=== PATIENT | male | born 1965 | race Caucasian/White ===

== ENCOUNTER 2021-05-19 16:08 | Outpatient (REF) | payer BC, SELFPAY ==
--- NOTE | ~2021-05-19 | XR_ITS ---
EXAMINATION: XR FOOT, RIGHT CLINICAL INFORMATION: Cellulitis, right great toe injury 1 week. COMPARISON: None TECHNIQUE: AP, lateral, and oblique views of the right foot. FINDINGS: There is an oblique fracture proximal segment distal phalanx great toe with intra-articular extension. There is mild soft tissue swelling. No additional fractures seen. Rest of the right foot is unremarkable. The ankle mortise and subtalar joints are normal. There is a tiny calcaneal heel enthesophyte. XR/XR foot RT min 3V IMPRESSION: Oblique fracture proximal segment distal phalanx first digit with intra-articular extension. The soft tissues are normal.
== END 2021-05-19 16:09 | disposition home or self-care (01) ==
LOC: HO.HMGCX 16:08
PROVIDERS: PCP Internal Medicine; Visit Provider Nurse Practitioner Family
DX: L03.90 Cellulitis, unspecified (principal); S99.921A Unspecified injury of right foot, initial encounter
CPT/HCPCS: 73630

== ENCOUNTER 2021-09-11 08:14 | Outpatient (REF) | payer BC, SELFPAY ==
[2021-09-11 11:23] LABS: MANUAL DIFF FLAG NO
[2021-09-11 11:35] LABS: Basophils Absolute Auto 0.1 X10*3/uL (0.0-0.2); Eosinophils Absolute Auto 0.3 X10*3/uL (0.0-0.4); Eosinophils Percent Auto 4.8 % (0-4); Hematocrit 44.4 % (42.0-52.0); Hemoglobin 14.9 g/dl (14.0-18.0); Imm Gran Abs Auto 0.02 X10*3/uL (0.00-0.03); Imm Gran Pct Auto 0.4 % (0.0-0.4); Lymphocytes Absolute Auto 1.5 X10*3/uL (1.2-4.9); Lymphocytes Percent Auto 27.7 % (20-40); Mean Corpuscular HGB Conc 33.6 g/dl (31.0-36.0); Mean Corpuscular Volume 92.5 fL (80.0-98.0); Mean Platelet Volume 10.6 fL (9.4-12.4); Monocytes Absolute Auto 0.6 X10*3/uL (0.1-1.2); Monocytes Percent Auto 11.5 % (2-11); Neutrophils Absolute Auto 2.9 x10*3/uL (2.0-8.3); Neutrophils Percent Auto 54.6 % (45-73); Platelet Count 235 X10*3/uL (160-400); Red Cell Distribution Width 12.6 % (11.0-16.0); White Blood Count 5.2 X10*3/uL (4.8-10.8)
[2021-09-11 12:02] LABS: Alanine Aminotransferase 42 U/L (0-40); Albumin Level 4.7 g/dL (3.5-5.0); Alkaline Phosphatase 77 U/L (39-117); Anion Gap 17 (12-20); Aspartate Amino Transferase 41 U/L (5-37); Bilirubin Total 0.9 mg/dL (0.0-1.0); Blood Urea Nitrogen 12 mg/dL (9-16); Carbon Dioxide 21 mmol/L (22-29); Chloride 106 mmol/L (96-108); Cholesterol 181 mg/dL; Estimated Glomerular Filt Rate > 60; Glucose Fasting 90 mg/dL (60-99); HDL Cholesterol 75 mg/dL; LDL Cholesterol Calculated 69 mg/dl; Potassium 4.1 mmol/L (3.3-5.1); Sodium 140 mmol/L (135-145); Total Protein 7.3 g/dL (6.5-8.0); Triglycerides 185 mg/dL
[2021-09-11 12:05] LABS: Thyroid Stimulating Hormone 2.73 uIU/mL (0.32-4.0)
[2021-09-11 14:12] LABS: Appearance Urine CLEAR; Color Urine YELLOW; Glucose Urine UA NEG (NEG); Leukocyte Esterase Urine NEG (NEG); Nitrite Urine NEG (NEG); PH 6.5 (5.0-8.0); Urine Blood NEG (NEG); Urine Ketones 5 MG/DL (NEG); Urine Protein NEG (NEG-TRACE)
[2021-09-11 14:23] LABS: RBC Urine 0 /HPF (0); WBC Urine 0 /HPF (0-4)
== END 2021-09-11 08:15 | disposition home or self-care (01) ==
LOC: HO.HMGCLDS 08:14
PROVIDERS: PCP Internal Medicine; Visit Provider Internal Medicine
DX: I10 Essential (primary) hypertension (principal); E78.00 Pure hypercholesterolemia, unspecified; Z12.5 Encounter for screening for malignant neoplasm of prostate
CPT/HCPCS: 36415; 80053; 80061; 81001; 84153; 84443; 85025

== ENCOUNTER 2021-10-12 15:39 | Outpatient (REF) | payer BC, SELFPAY ==
--- NOTE | ~2021-10-12 | XR_ITS ---
EXAMINATION: XR ANKLE, RIGHT CLINICAL INFORMATION: Acute idiopathic out right ankle COMPARISON: Right foot 05/19/2021 TECHNIQUE: AP, lateral, and mortise views of the right ankle. FINDINGS: Mineralization is normal. There is no fracture or malalignment. The joint space is preserved. There are no bony erosive changes or soft tissue calcifications. There is no convincing evidence of soft tissue swelling or ankle joint effusion. There is mild spurring of the calcaneus at the plantar fascial and Achilles tendon insertions. XR/XR ankle RT min 3V IMPRESSION: No acute abnormality is seen in the ankle.
== END 2021-10-12 15:40 | disposition home or self-care (01) ==
LOC: HO.HMGCX 15:39
PROVIDERS: PCP Internal Medicine; Visit Provider Internal Medicine
DX: M10.071 Idiopathic gout, right ankle and foot (principal)
CPT/HCPCS: 73610

== ENCOUNTER 2021-10-13 14:15 | Outpatient (REF) | payer BC, SELFPAY ==
[2021-10-13 16:28] LABS: MANUAL DIFF FLAG NO
[2021-10-13 16:33] LABS: Basophils Percent Auto 0.5 % (0-2); Eosinophils Absolute Auto 0.1 X10*3/uL (0.0-0.4); Eosinophils Percent Auto 1.4 % (0-4); Hematocrit 42.2 % (42.0-52.0); Hemoglobin 14.1 g/dl (14.0-18.0); Imm Gran Abs Auto 0.01 X10*3/uL (0.00-0.03); Imm Gran Pct Auto 0.2 % (0.0-0.4); Lymphocytes Absolute Auto 1.5 X10*3/uL (1.2-4.9); Lymphocytes Percent Auto 25.5 % (20-40); Mean Corpuscular HGB Conc 33.4 g/dl (31.0-36.0); Mean Corpuscular Hemoglobin 31.3 pg (27.0-33.0); Mean Corpuscular Volume 93.8 fL (80.0-98.0); Mean Platelet Volume 10.4 fL (9.4-12.4); Monocytes Absolute Auto 0.8 X10*3/uL (0.1-1.2); Monocytes Percent Auto 14.4 % (2-11); Neutrophils Absolute Auto 3.4 x10*3/uL (2.0-8.3); Platelet Count 228 X10*3/uL (160-400); Red Cell Distribution Width 12.4 % (11.0-16.0); White Blood Count 5.9 X10*3/uL (4.8-10.8)
[2021-10-13 16:57] LABS: Alanine Aminotransferase 45 U/L (0-40); Albumin Level 4.9 g/dL (3.5-5.0); Alkaline Phosphatase 75 U/L (39-117); Anion Gap 17 (12-20); Aspartate Amino Transferase 34 U/L (5-37); Bilirubin Total 0.8 mg/dL (0.0-1.0); Blood Urea Nitrogen 9 mg/dL (9-16); Calcium 9.8 mg/dL (8.4-10.2); Carbon Dioxide 21 mmol/L (22-29); Chloride 105 mmol/L (96-108); Estimated Glomerular Filt Rate > 60; Glucose Random 94 mg/dL (60-115); Potassium 3.9 mmol/L (3.3-5.1); Sodium 139 mmol/L (135-145); Total Protein 7.2 g/dL (6.5-8.0); Uric Acid 5.3 mg/dL (3.4-7.0)
[2021-10-13 17:21] LABS: Erythrocyte Sedimentation Rate 2 MM/HR (0-15)
== END 2021-10-13 14:16 | disposition home or self-care (01) ==
LOC: HO.HMGCLDS 14:15
PROVIDERS: PCP Internal Medicine; Visit Provider Internal Medicine
DX: M10.071 Idiopathic gout, right ankle and foot (principal)
CPT/HCPCS: 36415; 80053; 84550; 85025; 85652; 86140

== ENCOUNTER 2021-10-14 08:46 | Outpatient (REF) | payer BC, SELFPAY ==
[2021-10-14 11:36] LABS: Appearance Urine CLEAR; Color Urine YELLOW; Glucose Urine UA NEG (NEG); Leukocyte Esterase Urine NEG (NEG); Nitrite Urine NEG (NEG); PH 7.5 (5.0-8.0); Urine Blood NEG (NEG); Urine Ketones NEG (NEG); Urine Protein NEG (NEG-TRACE)
[2021-10-14 12:25] LABS: Squamous Epithelial Cell Urine TRACE /LPF
[2021-10-14 12:26] LABS: RBC Urine 0-2 /HPF (0); WBC Urine 0-2 /HPF (0-4)
== END 2021-10-14 08:47 | disposition home or self-care (01) ==
LOC: HO.HMGCLNP 08:46
PROVIDERS: Visit Provider Internal Medicine
DX: M10.071 Idiopathic gout, right ankle and foot (principal)
CPT/HCPCS: 81001

== ENCOUNTER 2022-02-02 10:17 | Outpatient (REF) | payer BC, SELFPAY ==
[2022-02-02 11:41] LABS: Hemoglobin 14.1 g/dl (14.0-18.0); Neutrophils Absolute Auto 3.7 x10*3/uL (2.0-8.3); PLT CLUMP 1; SCAN SMEAR FLAG 1
[2022-02-02 11:43] LABS: Basophils Absolute Auto 0.1 X10*3/uL (0.0-0.2); Basophils Percent Auto 0.8 % (0-2); Eosinophils Absolute Auto 0.2 X10*3/uL (0.0-0.4); Eosinophils Percent Auto 2.8 % (0-4); Hematocrit 42.7 % (42.0-52.0); Imm Gran Abs Auto 0.03 X10*3/uL (0.00-0.03); Imm Gran Pct Auto 0.5 % (0.0-0.4); Lymphocytes Absolute Auto 1.4 X10*3/uL (1.2-4.9); Lymphocytes Percent Auto 22.4 % (20-40); MANUAL DIFF FLAG SCAN; Mean Corpuscular Hemoglobin 31.4 pg (27.0-33.0); Mean Corpuscular Volume 95.1 fL (80.0-98.0); Mean Platelet Volume 10.6 fL (9.4-12.4); Monocytes Percent Auto 15.2 % (2-11); Neutrophils Percent Auto 58.3 % (45-73); Red Blood Count 4.49 X10*6/uL (4.60-5.80); Red Cell Distribution Width 12.4 % (11.0-16.0)
[2022-02-02 12:01] LABS: Platelet Count 187 X10*3/uL (160-400); White Blood Count 6.4 X10*3/uL (4.8-10.8)
[2022-02-02 12:02] LABS: SLIDE REVIEW VERIFIED
[2022-02-02 16:57] LABS: Alanine Aminotransferase 57 U/L (0-40); Albumin Level 4.6 g/dL (3.5-5.0); Alkaline Phosphatase 88 U/L (39-117); Anion Gap 20 (12-20); Aspartate Amino Transferase 56 U/L (5-37); Bilirubin Total 0.9 mg/dL (0.0-1.0); Blood Urea Nitrogen 16 mg/dL (9-16); Calcium 9.8 mg/dL (8.4-10.2); Carbon Dioxide 21 mmol/L (22-29); Chloride 107 mmol/L (96-108); Estimated Glomerular Filt Rate > 60; Glucose Random 79 mg/dL (60-115); Potassium 4.7 mmol/L (3.3-5.1); Sodium 143 mmol/L (135-145); Total Protein 7.2 g/dL (6.5-8.0)
== END 2022-02-02 10:18 | disposition home or self-care (01) ==
LOC: HO.HMGCLDS 10:17
PROVIDERS: Visit Provider Internal Medicine
DX: R10.13 Epigastric pain (principal)
CPT/HCPCS: 36415; 80053; 85025

== ENCOUNTER 2022-05-12 06:35 | Day surgery (SDC) | payer BC, SELFPAY ==
[2022-03-17 11:27] VITALS: BMI 34.2
--- NOTE | 2022-03-22 09:40 | HO.ANESPROP2 ---
HPI - Anesthesia Eval Consult details Narrative: 56yo M for Upper Endoscopy PMFSH Active Problems Active Problems: All Active Problems (Updated 03/17/22 @ 11:25 by Bia Simpson RN) Cellulitis (Acute) Toe injury (Acute) Past Medical History Medical History (Updated 03/17/22 @ 11:25 by Bia Simpson, RN) Cervical spine fracture Elevated cholesterol GERD (gastroesophageal reflux disease) HTN (hypertension) Surgical History Surgical History (Updated 03/17/22 @ 11:25 by Bia Simpson RN) H/O colonoscopy History of meniscectomy of right knee History of surgery on right wrist Hx of cervical spine surgery Hx of repair of left rotator cuff Hx of tonsillectomy Meds Allergies Allergy/AdvReac Type Severity Reaction Status Date / Time ENVIRONMENTAL Allergy Intermediate NASAL Uncoded 03/17/22 11:26 STUFFINESS Home Medications Medication Instructions Recorded Confirmed Last Taken Type aspirin 81 mg tablet,delayed 81 mg PO DAILY 05/19/21 03/17/22 Unknown History release atorvastatin 40 mg tablet 40 mg PO DAILY 05/19/21 03/17/22 Unknown History losartan 50 mg tablet 1 tab PO DAILY 03/17/22 03/17/22 Unknown History multivitamin 1 tab PO DAILY 03/17/22 03/17/22 Unknown History pantoprazole 40 mg tablet,delayed 1 tab PO BID 03/17/22 03/17/22 Unknown History release tadalafil 20 mg tablet (Cialis) 1 tab PO DAILY PRN 03/17/22 03/17/22 Unknown History Exam Exam Date and Time: March 22, 2022 0940 Height,Weight and Vital Signs: Height 5 ft 11 in Weight 111.584 kg Pertinent Lab Results Pertinent Lab Results: Laboratory Tests 02/02/22 02/02/22 10:21 14:37 WBC 6.4 Hgb 14.1 Hct 42.7 Plt Count 187 Sodium 143 Potassium 4.7 D Chloride 107 Carbon Dioxide 21 L BUN 16 D Creatinine 0.91 Assessment and Plan Assessment Anesthesia Assessment: Chart Reviewed
--- NOTE | 2022-05-11 08:12 | P.CONAN_ITS ---
Documented by User: Patience Shipley NP 05/11/22 08:13 HPI - Anesthesia Eval Consult details Narrative: 56yo M for Upper Endoscopy PMFSH Active Problems Active Problems: All Active Problems (Updated 03/17/22 @ 11:25 by Bia Simpson RN) Cellulitis (Acute) Toe injury (Acute) Past Medical History Medical History Cervical spine fracture Elevated cholesterol GERD (gastroesophageal reflux disease) HTN (hypertension) Surgical History Surgical History H/O colonoscopy History of meniscectomy of right knee History of surgery on right wrist Hx of cervical spine surgery Hx of repair of left rotator cuff Hx of tonsillectomy Social History Social History Patient Tobacco Use Status: Never used Tobacco Use of substances other than those prescribed or required for medical reasons: No Are you DNR?: No Advance Directives: No Advance Directives Information Provided: Yes Recently lost weight without trying: No Nutrition Risks: No Nutritional Risk Meds Allergies Allergy/AdvReac Type Severity Reaction Status Date / Time ENVIRONMENTAL Allergy Intermediate NASAL Uncoded 03/17/22 11:26 STUFFINESS Home Medications Medication Instructions Recorded Confirmed Last Taken Type aspirin 81 mg tablet,delayed 81 mg PO DAILY 05/19/21 03/17/22 Unknown History release atorvastatin 40 mg tablet 40 mg PO DAILY 05/19/21 03/17/22 Unknown History losartan 50 mg tablet 1 tab PO DAILY 03/17/22 03/17/22 Unknown History multivitamin 1 tab PO DAILY 03/17/22 03/17/22 Unknown History pantoprazole 40 mg tablet,delayed 1 tab PO BID 03/17/22 03/17/22 Unknown History release tadalafil 20 mg tablet (Cialis) 1 tab PO DAILY PRN Erectile 03/17/22 03/17/22 Unknown History Dysfunction Exam Exam Date and Time: May 11, 2022 0812 Height,Weight and Vital Signs: Height 5 ft 11 in Weight 111.584 kg Pertinent Lab Results Pertinent Lab Results: Laboratory Tests 02/02/22 02/02/22 10:21 14:37 WBC 6.4 Hgb 14.1 Hct 42.7 Plt Count 187 Sodium 143 Potassium 4.7 D Chloride 107 Carbon Dioxide 21 L BUN 16 D Creatinine 0.91 Assessment and Plan Assessment Anesthesia Assessment: Chart Reviewed Documented by User: Jacqueline Alonzo MD 05/12/22 07:54 [facility] Past Medical History Medical History Cervical spine fracture Elevated cholesterol GERD (gastroesophageal reflux disease) HTN (hypertension) Surgical History Surgical History H/O colonoscopy History of meniscectomy of right knee History of surgery on right wrist Hx of cervical spine surgery Hx of repair of left rotator cuff Hx of tonsillectomy History of Problems with Anesthesia: No Social History Social History Patient Tobacco Use Status: Never used Tobacco Use of substances other than those prescribed or required for medical reasons: No Are you DNR?: No Advance Directives: No Advance Directives Information Provided: Yes Recently lost weight without trying: No Nutrition Risks: No Nutritional Risk Meds Allergies Allergy/AdvReac Type Severity Reaction Status Date / Time ENVIRONMENTAL Allergy Intermediate NASAL Uncoded 03/17/22 11:26 STUFFINESS Home Medications Medication Instructions Recorded Confirmed Last Taken Type aspirin 81 mg tablet,delayed 81 mg PO DAILY 05/19/21 03/17/22 Unknown History release atorvastatin 40 mg tablet 40 mg PO DAILY 05/19/21 03/17/22 Unknown History losartan 50 mg tablet 1 tab PO DAILY 03/17/22 03/17/22 Unknown History multivitamin 1 tab PO DAILY 03/17/22 03/17/22 Unknown History pantoprazole 40 mg tablet,delayed 1 tab PO BID 03/17/22 03/17/22 Unknown History release tadalafil 20 mg tablet (Cialis) 1 tab PO DAILY PRN Erectile 03/17/22 03/17/22 Unknown History Dysfunction Exam Airway Mallampati Class: III TM Dist: >3cm Neck ROM: Full Loose/Missing/Broken Teeth: No Heart: RRR Lungs: CTA Assessment and Plan Assessment Anesthesia Assessment: Anesthesia Plan Discussed Final Anesthetic Review History of Problems with Anesthesia: No NPO: Yes ASA Class: II Final Preanesthetic Review: Meds/Allgs Chart Reviewed, Consent Obtained/Reviewed and Anes Risks/Benef Reviewed Patient Risk: Low Procedure Risk: Intermediate Anesthetic Plan Anesthetic Plan: MAC: Disposition: Standard PACU
[2022-05-12 06:59] VITALS: BMI 33.5
[2022-05-12 07:04] VITALS: BP 156/97; PULSE 84; RESP 16; TEMP 36.7; O2SAT 96
[2022-05-12] MEDS: Lactated Ringers 1,000 ML 100 ML IVCONT (07:19)
--- NOTE | 2022-05-12 07:31 | MHC.SHP ---
Pre-Procedural Eval Section A Date of Service: 05/12/22 Section B Chief Complaint: reflux disease Details of Present Illness: see H&P no changes Relevant Family History (Specify if Yes): No Relevant Social History: None Present Medications: see Short Stay Collaborative assessment Medical History: No relevant PMH History of Previous Operations: No relevant previous surgery Allergies: Allergies Allergy/AdvReac Type Severity Reaction Status Date / Time ENVIRONMENTAL Allergy Intermediate NASAL Uncoded 03/17/22 11:26 STUFFINESS Review of Systems Sugical H&P ROS: Negative: Constitution, Cardiovascular, Respiratory, Neurological, Psychiatric, Hem-Onc, Allergic/Immunologic, Gastrointestinal, Genitourinary, Musculoskeletal, Integumentary, Endocrine and Eyes/Ears/Nose/Throat Exam Surgical H&P Exam: Normal: HEENT, Normal: Heart, Normal: Lungs, Normal: Extremities, Normal: Abdomen, Normal: Skin and Normal: Neurological Plan Diagnosis/Plan: Unchanged I have reviewed the history and physical and performed a pertinent physical examination on my patient. No changes have occurred unless specified.
--- NOTE | 2022-05-12 07:48 | P.BOP_ITS ---
Brief Operative Note Date of Service: 05/12/22 Pre-op diagnosis: GERD Post-op diagnosis: same Procedure: EGD Surgeon: Shady Almodovar Anesthesia: MAC Was an Human Resources Communications Manager used for this Procedure?: No Estimated blood loss (mL): 2 Pathology: other (antrum, egj bxs) Condition: stable Disposition: PACU
[2022-05-12 07:50] VITALS: BP 119/80; PULSE 91; RESP 20; TEMP 36.2; O2SAT 97
[2022-05-12 08:08] VITALS: BP 144/89; PULSE 77; RESP 18; TEMP 36.2; O2SAT 97
--- NOTE | 2022-05-12 08:37 | OP_ITS ---
SURGEON: Shady Almodovar MD INDICATIONS: Gastroesophageal reflux disease. PREOPERATIVE DIAGNOSIS: POSTOPERATIVE DIAGNOSIS: PROCEDURE PERFORMED: Upper endoscopy with biopsy. ESTIMATED BLOOD LOSS: COMPLICATIONS: ANESTHESIA: Monitored anesthesia care. ASSISTANTS: SPECIMENS: DESCRIPTION OF PROCEDURE: History and physical was performed. The risks and benefits of the procedure were explained to the patient. Informed consent was obtained. The patient was placed in left lateral decubitus position. The Olympus video gastroscope was introduced into the esophagus, stomach, and duodenum. Examination was performed. The scope was removed. He tolerated the procedure well and was taken to recovery in stable condition. FINDINGS: Esophagus: The esophagus was normal. There was no esophagitis. Biopsies were obtained from the EG junction. Stomach: The stomach showed no evidence of masses, ulcers, or polyps. Antral biopsies were obtained to evaluate for H pylori. Duodenum: The bulb and second portion were normal. IMPRESSION: Gastroesophageal reflux disease. RECOMMENDATIONS: Follow up the biopsy results. MD BYRON Chu/MODL / [id number]
== END 2022-05-12 08:26 | disposition home or self-care (01) ==
PROVIDERS: PCP Internal Medicine; Visit Provider Internal Medicine Gastroenterology
PROC: 0DJ08ZZ Inspection of Upper Intestinal Tract, Via Natural or Artificial Opening Endoscopic (ICD-10-PCS; CPT 43235; principal; 2022-05-12 07:30)
DX: K21.9 Gastro-esophageal reflux disease without esophagitis (principal); I10 Essential (primary) hypertension; E78.00 Pure hypercholesterolemia, unspecified; Z87.81 Personal history of (healed) traumatic fracture; Z79.899 Other long term (current) drug therapy
CPT/HCPCS: 43239; 88305; 88342

== ENCOUNTER 2022-09-29 08:12 | Emergency (ER) | payer BC, SELFPAY ==
[2022-09-29 08:40] VITALS: BP 178/117; PULSE 86; RESP 16; TEMP 36.2; O2SAT 95; BMI 32.1
[2022-09-29 08:51] LABS: MANUAL DIFF FLAG NO
[2022-09-29 08:53] LABS: Basophils Percent Auto 0.9 % (0-2); Eosinophils Absolute Auto 0.2 X10*3/uL (0.0-0.4); Eosinophils Percent Auto 3.5 % (0-4); Hematocrit 40.9 % (42.0-52.0); Hemoglobin 13.7 g/dl (14.0-18.0); Imm Gran Abs Auto 0.01 X10*3/uL (0.00-0.03); Imm Gran Pct Auto 0.2 % (0.0-0.4); Lymphocytes Percent Auto 21.8 % (20-40); Mean Corpuscular HGB Conc 33.5 g/dl (31.0-36.0); Mean Corpuscular Volume 95.6 fL (80.0-98.0); Mean Platelet Volume 9.4 fL (9.4-12.4); Monocytes Absolute Auto 0.7 X10*3/uL (0.1-1.2); Monocytes Percent Auto 15.5 % (2-11); Neutrophils Absolute Auto 2.7 x10*3/uL (2.0-8.3); Neutrophils Percent Auto 58.1 % (45-73); Platelet Count 170 X10*3/uL (160-400); Red Blood Count 4.28 X10*6/uL (4.60-5.80); Red Cell Distribution Width 12.5 % (11.0-16.0); White Blood Count 4.6 X10*3/uL (4.8-10.8)
[2022-09-29 09:08] LABS: Alanine Aminotransferase 101 U/L (0-40); Albumin Level 4.7 g/dL (3.5-5.0); Alkaline Phosphatase 88 U/L (39-117); Anion Gap 19 (12-20); Aspartate Amino Transferase 111 U/L (5-37); Bilirubin Total 0.6 mg/dL (0.0-1.0); Blood Urea Nitrogen 12 mg/dL (9-16); Calcium 9.8 mg/dL (8.4-10.2); Carbon Dioxide 25 mmol/L (22-29); Chloride 106 mmol/L (96-108); Creatinine Clr Calc Pharmacy 108.9; Estimated Glomerular Filt Rate > 60; Glucose Random 90 mg/dL (60-115); Potassium 4.1 mmol/L (3.3-5.1); Sodium 146 mmol/L (135-145); Total Protein 7.1 g/dL (6.5-8.0)
[2022-09-29 09:58] VITALS: BP 182/102; PULSE 79; RESP 16; O2SAT 97
--- OUTSIDE RECORDS SUMMARY | 2022-09-29 10:00 | XMS_ITS | Continuity of Care Document ---
:1965 Author Organization [facility] Address [address] [place] [address], 3rd [facility], [address] [place] [address]- Care Team Providers Name Role Phone Pineda Renteria DO Primary Care Physician Encounter [facility] Date(s): 05/31/20 - 06/30/20 [facility] [address] [place] [address], 3rd [facility], [address] [place] [phone]- [facility] Allergies, Adverse Reactions, Alerts Substance Reaction Severity Status NKA Active Immunizations Given and Recorded Vaccine Date Status Refusal Reason Influenza Inactive (IM) (oldterm) 09/01/06 Given Hepatitis A-Hepatitis B Vaccine1 09/01/06 Given Hepatitis A-Hepatitis B Vaccine2 08/02/06 Given Typhoid Vaccine, Inactivated 08/02/06 Given tetanus-diphtheria toxoids (Td) 08/02/06 Given 1Admin Note: TWINRIS #22Admin Note: TWINRIX #1 Medications atorvastatin 10 mg oral tablet 1 tablet = 10 mg, By Mouth, Daily, 0 Refills, Maintenance Start Date: 12/14/17 Status: Orderedcealis cealis, Refills 0, Maintenance, 12/29/17 15:15:37, Compound Start Date: 12/29/17 Status: Orderedchloroquine 500 mg oral tablet 500, mg, 1, tablet, By Mouth, Every week, 18, 0, 0, 08/02/06 16:00:55, begin1 week prior to travel in [facility] area, take weekly and for 4 weeks after leaving [facility] area, Print PHILIP Number, ADS OPPT, [address] [place] [id number], 67, Cons... Start Date: 08/02/06 Status: OrderedCipro 500 mg oral tablet 500, mg, 1, tablet, By Mouth, Every 12 hours, 12, 0, 0, 08/02/06 16:00:04, for severe diarrhea, Print PHILIP Number, ADS OPPTHS, [address] [place] [address], 103, Constant Indicator Start Date: 08/02/06 Stop Date: 08/05/06 Status: OrderedTamiflu 75 mg oral capsule 75, mg, 1, capsule, By Mouth, 2 times a day, 10, capsule, 0, 0, 09/01/06 16:49:07, Print PHILIP Number,ADS OPPTHS, [id number], Constant Indicator Start Date: 09/01/06 Status: Ordered
--- OUTSIDE RECORDS SUMMARY | 2022-09-29 10:00 | XMS_ITS | Continuity of Care Document ---
:1965 Author Organization [facility] Address [address] [facility], 3rd Floor, [address] [place] [address]- Care Team Providers Name Role Phone Pineda Renteria DO Primary Care Physician Encounter [facility] Date(s): 05/14/21 - 06/13/21 [facility] [address] [facility], 3rd [facility], [address] [place] [id number] Attending Physician: Aries Ramirez Admitting Physician: Aries Ramirez Referring Physician: AdmtrAries Allergies, Adverse Reactions, Alerts Substance Reaction Severity [...] Refills, Maintenance Start Date: 12/14/17 Status: Orderedcealis ceamelanis, Refills 0, Maintenance, 12/29/17 15:15:37, Compound Start Date: 12/29/17 Status: Orderedchloroquine 500 mg oral tablet 500, mg, 1, tablet, By Mouth, Every week, 18, 0, 0, 08/02/06 16:00:55, begin1 week prior to travel [place], take weekly and for 4 weeks after leaving [place], Print PHILIP Number, ADS OPPTHS, [address] [place] [address], 67, Cons... Start Date: 08/02/06 Status: OrderedCipro 500 mg oral tablet 500, mg, 1, tablet, By Mouth, Every 12 hours, 12, 0, 0, 08/02/06 16:00:04, for severe diarrhea, Print PHILIP Number, ADS OPPTHS, [address] [place] [address], 103, Constant Indicator Start Date: 08/02/06 Stop Date: 08/05/06 Status: OrderedTamiflu 75 mg oral capsule 75, mg, 1, capsule, By Mouth, 2 times a day, 10, capsule, 0, 0, 09/01/06 16:49:07, Print PHILIP Number,ADS OPPTHS, [id number], Constant Indicator Start Date: 09/01/06 Status: Ordered
--- OUTSIDE RECORDS SUMMARY | 2022-09-29 10:00 | XMS_ITS | Continuity of Care Document ---
:1965 Author Organization [facility] Address [address] [place] [address], 3rd [facility], [address] [place] [address]- Care Team Providers Name Role Phone Pineda Renteria DO Primary Care Physician Encounter [facility] Date(s): 06/04/20 - 07/04/20 [facility] [address] [place] [address], 3rd [facility], [address] [place] [address]- [facility] Allergies, Adverse Reactions, Alerts Substance Reaction Severity [...] 16:00:55, begin1 week prior to travel in [facility] area, take weekly and for 4 weeks after leaving [facility] area, Print PHILIP Number, ADS OPPT, [address] [place] [id number], 67, Cons... Start Date: 08/02/06 Status: OrderedCipro 500 mg oral tablet 500, mg, 1, tablet, By Mouth, Every 12 hours, 12, 0, 0, 08/02/06 16:00:04, for severe diarrhea, Print PHILIP Number, ADS OPPTHS, [address] [place] [address], 103, Constant Indicator Start Date: 08/02/06 Stop Date: 08/05/06 Status: OrderedTamiflu 75 mg oral capsule 75, mg, 1, capsule, By Mouth, 2 times a day, 10, capsule, 0, 0, 09/01/06 16:49:07, Print PHILIP Number,ADS OPPTHS, [id number], Constant Indicator Start Date: 09/01/06 Status: Ordered
--- OUTSIDE RECORDS SUMMARY | 2022-09-29 10:00 | XMS_ITS | Continuity of Care Document ---
:1965 Author Organization [facility] Address [address] [facility], 3rd Floor, [address] [place] [address]- Care Team Providers Name Role Phone Pineda Renteria DO Primary Care Physician Encounter [facility] Date(s): 05/27/20 - 06/26/20 [facility] [address] [facility], 3rd [facility], [address] [place] [address]- [facility] Attending Physician: Aries Ramirez Admitting Physician: Aries [...] [place] area, Print PHILIP Number, ADS OPPTHS, [address] [place] [phone], 67, Cons... Start Date: 08/02/06 Status: OrderedCipro 500 mg oral tablet 500, mg, 1, tablet, By Mouth, Every 12 hours, 12, 0, 0, 08/02/06 16:00:04, for severe diarrhea, Print PHILIP Number, ADS OPPTHS, [address] [place] [address], 103, Constant Indicator Start Date: 08/02/06 Stop Date: 08/05/06 Status: OrderedTamiflu 75 mg oral capsule 75, mg, 1, capsule, By Mouth, 2 times a day, 10, capsule, 0, 0, 09/01/06 16:49:07, Print PHILIP Number,ADS OPPTHS, [id number], Constant Indicator Start Date: 09/01/06 Status: Ordered
--- OUTSIDE RECORDS SUMMARY | 2022-09-29 10:00 | XMS_ITS | Continuity of Care Document ---
:1965 Author Organization [facility] Address [address] [place] [address], 3rd [facility], [address] [place] [address]- Care Team Providers Name Role Phone Pineda Renteria DO Primary Care Physician Encounter [facility] Date(s): 05/21/20 - 06/20/20 [facility] [address] [place] [address], 3rd [facility], [address] [place] [address]- [facility] Allergies, Adverse Reactions, Alerts Substance Reaction Severity [...] 16:00:55, begin1 week prior to travel in [facility] area, take weekly and for 4 weeks after leaving [facility] area, Print PHILIP Number, ADS OPPT, [address] [place] [phone], 67, Cons... Start Date: 08/02/06 Status: OrderedCipro 500 mg oral tablet 500, mg, 1, tablet, By Mouth, Every 12 hours, 12, 0, 0, 08/02/06 16:00:04, for severe diarrhea, Print PHILIP Number, ADS OPPTHS, [address] [place] [address], 103, Constant Indicator Start Date: 08/02/06 Stop Date: 08/05/06 Status: OrderedTamiflu 75 mg oral capsule 75, mg, 1, capsule, By Mouth, 2 times a day, 10, capsule, 0, 0, 09/01/06 16:49:07, Print PHILIP Number,ADS OPPTHS, [id number], Constant Indicator Start Date: 09/01/06 Status: Ordered
--- OUTSIDE RECORDS SUMMARY | 2022-09-29 10:00 | XMS_ITS | Continuity of Care Document ---
:1965 Author Organization [facility] Address [address] [facility], 3rd Floor, [address] [place] [address]- Care Team Providers Name Role Phone Pineda Renteria DO Primary Care Physician Encounter [facility] Date(s): 11/10/20 - 12/10/20 [facility] [address] [facility], 3rd [facility], [address] [place] [address] Attending Physician: Aries Ramirez Admitting Physician: [...] area, Print PHILIP Number, ADS OPPTHS, [address] [place] [address], 67, Cons... Start Date: 08/02/06 Status: OrderedCipro 500 mg oral tablet 500, mg, 1, tablet, By Mouth, Every 12 hours, 12, 0, 0, 08/02/06 16:00:04, for severe diarrhea, Print PHILIP Number, ADS OPPTHS, [address] [place] [address], 103, Constant Indicator Start Date: 08/02/06 Stop Date: 08/05/06 Status: OrderedTamiflu 75 mg oral capsule 75, mg, 1, capsule, By Mouth, 2 times a day, 10, capsule, 0, 0, 09/01/06 16:49:07, Print PHILIP Number,ADS OPPTHS, [id number], Constant Indicator Start Date: 09/01/06 Status: Ordered
--- OUTSIDE RECORDS SUMMARY | 2022-09-29 10:00 | XMS_ITS ---
:1965 Author Organization [facility] Address [address] [place] [address] Care Team Providers Name Role Phone Shady Almodovar Jr Unavailable Unavailable PROBLEMS Type Condition ICD9-CM [id number] Onset Condition SNOMED Cod e Code Code Dates Status Problem Gastroesophageal K21.9 Active 266 [id number] reflux disease without esophagitis Problem Esophageal reflux K21.9 Active disease Problem Encounter for other Z01.818 Active [id number] preprocedural examination Problem Colon cancer Z12.11 Active 6714469 04 screening ALLERGIES No Known Allergies ENCOUNTERS Encounter Location Date Diagnosis [address] Aug, [facility] [address] [place] [address] Apr, [facility] [address] [place] [address] [facility] Outpatient [address] [facility] Apr, Esophageal refl [place]x disease [place] [id number] K21.[address] February, [facility] [address] [place] [address] Jan, Gastroes ophageal reflux [facility] [address] [place] disease [place]out esophagitis [address] K21.9 and Colon cancer screening Z12.11 [facility] Outpatient [address] [facility] Oct, [place], [place] [id number] [address] Jul, Encounte r for other [facility] [address] [place] preproced[place]al examination [id number] Z01.818 and [place] n cancer screening Z12.11 IMMUNIZATIONS Vaccine Route Administration Date Status Influenza Unknown Aug 19, 2021 Administered Influenza Unknown Jul 31, 2016 Administered SOCIAL HISTORY Never Assessed REASON FOR REFERRAL FUNCTIONAL STATUS PLAN OF CARE Activity Details Future Appointment Provider Name:Shady Plummer Songgiuliano wallis , 2023-01-14 10:00:00 AM, [address] [place] [address], [address] , [place], [address], Future/Pending Procedure UPPER GI ENDOSCOPY [id number] Future/Pending Procedure COLONOSCOPY [id number] VITAL SIGNS Weight 246 lbs 2022-02-10 Weight 216 lbs 2016-08-12 Height 71 in 2022-02-10 Height 71 in 2016-08-12 BMI 34.31 kg/m2 2022-02-10 BMI 30.12 kg/m2 2016-08-12 Heart Rate 56 /min 2016-08-12 Temperature 98.4 degrees Fahrenheit 2022-02-10 Blood pressure systolic 000 mm Hg 2022-02-10 Blood pressure diastolic 00 mm Hg 2022-02-10 MEDICATIONS Medication Instructions Dosage Frequency Start End Duration Statu s Date Date Losartan 26 Active Potassium 50 MG Colyte with Orally Over the As directed Jul, 1 day(s) Active Flavor Packs 240 specified time. 2015 GM Aspir-Low 81 MG Orally Once a 1 tablet 24h Jan, 30 day(s) Active day 2021 Multivitamin - as directed Jan, Activ e 2021 Atorvastatin Active Calcium Pantoprazole TAKE 1 30 Active Sodium 40 MG TABLET BY MOUTH TWICE A DAY FOR 30 DAYS Cialis 20 MG TAKE 1 30 Active TABLET BY MOUTH EVERY DAY NEEDED PROCEDURES Procedure Date Ordered Result Body Site PATIENT NOT ELIG D/T ACTIVE DX HTN February 10, 2022 Pt scrn tbco id as non user February 10, 2022 DOC MEDS VERIFIED W/PT OR RE February 10, 2022 COLORECTAL CA SCREEN DOC REV February 10, 2022 UPPER GI ENDOSCOPY, BIOPSY May 12, 2022 RESULTS Name Result Date Reference Range Pathology 2022-05-12 GI BIOPSY 2016-11-10 G.I. BIOPSY REASON FOR VISIT Marcano's Esophagus, Pt no show, Patient presents today for a F/U OFFICE VISIT FOR BARRETTS ESOPHAGUS, pathology, gerd, gerd, patient r/s egd for tomorrow, Patient presents today for DYSPEPSIA, screening colonoscopy, PRE-COLON Insurance Providers [facility] Member Patient Patient Patient Patient Patient Subscriber Subscriber Subscriber Group Insurance Plan Plan Plan Plan ID Relationship Address Phone Name Date of ID Name Date of No Type Insurance Insurance Insurance Coverage to Subscriber Address Phone Name Dates [facility] [place] [facility] [phone] [facility] [place]dugo RYAN [id number] [employer] [id number] [place] CLAIMS [address] [facility] [phone]
--- NOTE | 2022-09-29 10:31 | ED_ITS ---
HPI - Head Injury General Chief complaint: Fall Stated complaint: fall 2 weeks ago Time Seen by Provider: 09/29/22 10:00 Source: patient Mode of arrival: ambulatory Limitations: no limitations History of Present Illness HPI Narrative: 57-year-old male presents to emergency department 2 weeks after hitting his head. States he hit the right side of his head and from the temporally had a black eye which has since resolved states he feels like he is 97% call to see his doctor today who told him to come in here and told him that he had a head injury. Patient has no other symptoms other than some mild pain to the side of his head he denies any falls fevers cough he states he felt she would be better at this time he does have history of neck fracture but no other issues he does have some right-sided weakness from this neck fracture which is old and chronic but no new pain or issues to that area. MD Complaint: head injury Related Data Home Medications Medication Instructions Recorded Confirmed aspirin 81 mg tablet,delayed 81 mg PO DAILY 05/19/21 03/17/22 release atorvastatin 40 mg tablet 40 mg PO DAILY 05/19/21 03/17/22 losartan 50 mg tablet 1 tab PO DAILY 03/17/22 03/17/22 multivitamin 1 tab PO DAILY 03/17/22 03/17/22 pantoprazole 40 mg tablet,delayed 1 tab PO BID 03/17/22 03/17/22 release tadalafil 20 mg tablet (Cialis) 1 tab PO DAILY PRN Erectile 03/17/22 03/17/22 Dysfunction Previous Rx's Medication Instructions Recorded cephalexin 500 mg capsule 500 mg PO QID 7 days #28 caps 05/19/21 Allergies Allergy/AdvReac Type Severity Reaction Status Date / Time ENVIRONMENTAL Allergy Intermediate NASAL Uncoded 03/17/22 11:26 STUFFINESS Review of Systems Review of Systems: Review of systems: General: Patient denies any fever chills recent illness or falls Musculoskeletal: Denies back pain or body aches or other injuries HEENT: denies headache, runny nose, ear pain Respiratory: denies shortness of breath, cough Cardiovascular: no chest pain or palpitations : denies dysuria, frequency Abdomen: no nausea vomiting denies abdominal pain Extremities: no swelling, no pain Skin: no diaphoresis Yes all other systems are reviewed and are negative [facility] Past Medical History Medical History Cervical spine fracture Elevated cholesterol GERD (gastroesophageal reflux disease) HTN (hypertension) Surgical History H/O colonoscopy History of meniscectomy of right knee History of surgery on right wrist Hx of cervical spine surgery Hx of repair of left rotator cuff Hx of tonsillectomy Social History Social History Patient Tobacco Use Status: Never used Tobacco Advance Directives: No Advance Directives Information Provided: Yes Physical Exam Vital Signs: Vital Signs: Last Vital Signs Temp 97.1 F 09/29/22 08:40 Pulse 79 09/29/22 09:58 Resp 16 09/29/22 09:58 BP 182/102 H 09/29/22 09:58 Pulse Ox 97 09/29/22 09:58 O2 Del Method 09/29/22 09:58 BMI result Body Mass Index 32.1 General: Well-appearing well-nourished in no signs of distress HEENT: Normocephalic atraumatic Neck: No signs of JVD, no masses no tenderness or lymphadenopathy Cardiovascular: Regular rate and rhythm Respiratory: Clear to auscultation bilaterally Abdomen: Soft nontender no masses Extremities: Normal pedal pulses no signs of edema Skin: Dry warm no rashes Back: No tenderness full ROM MDM - Head Injury MDM Narrative Medical decision making narrative: Patient looks well it has been two weeks since the head injury. Patient looks well I see no reason for imaging at this time. He likely has a concussion. Lab Data Result diagrams: 09/29/22 08:47 09/29/22 08:47 Labs: Lab Results 09/29/22 09/29/22 Range/Units 08:47 08:47 WBC 4.6 L (4.8-10.8) X10*3/uL RBC 4.28 L (4.60-5.80) X10*6/uL Hgb 13.7 L (14.0-18.0) g/dl Hct 40.9 L (42.0-52.0) % MCV 95.6 (80.0-98.0) fL MCH 32.0 (27.0-33.0) pg MCHC 33.5 (31.0-36.0) g/dl RDW 12.5 (11.0-16.0) % Plt Count 170 (160-400) X10*3/uL MPV 9.4 (9.4-12.4) fL Immature Gran % (Auto) 0.2 (0.0-0.4) % Neut % (Auto) 58.1 (45-73) % Lymph % (Auto) 21.8 (20-40) % Hardy % (Auto) 15.5 H (2-11) % Eos % (Auto) 3.5 (0-4) % Baso % (Auto) 0.9 (0-2) % Lymph # (Auto) 1.0 L (1.2-4.9) X10*3/uL Hardy # (Auto) 0.7 (0.1-1.2) X10*3/uL Eos # (Auto) 0.2 (0.0-0.4) X10*3/uL Baso # (Auto) 0.0 (0.0-0.2) X10*3/uL Abs Immat Gran (auto) 0.01 (0.00-0.03) X10*3/uL Absolute Neuts (auto) 2.7 (2.0-8.3) x10*3/uL Absolute Nucleated RBC 0.000 (0.0-0.012) X10*3/uL Nucleated RBC % (auto) 0.0 (0.0-0.2) /100WBC Sodium 146 H (135-145) mmol/L Potassium 4.1 (3.3-5.1) mmol/L Chloride 106 (96-108) mmol/L Carbon Dioxide 25 (22-29) mmol/L Anion Gap 19 (12-20) BUN 12 (9-16) mg/dL Creatinine 0.92 (0.5-1.4) mg/dL Estim Creat Clear Calc 108.9 Estimated GFR > 60 Random Glucose 90 (60-115) mg/dL Calcium 9.8 (8.4-10.2) mg/dL Total Bilirubin 0.6 (0.0-1.0) mg/dL AST 111 H (5-37) U/L ALT 101 H (0-40) U/L Alkaline Phosphatase 88 (39-117) U/L Total Protein 7.1 (6.5-8.0) g/dL Albumin 4.7 (3.5-5.0) g/dL Discharge Plan Discharge Clinical Impression: Concussion without loss of consciousness Patient Disposition: Home, Self-Care Instructions: Concussion (ED), Chronic Post Traumatic Headache (ED) Additional Instructions: Please take it easy and decrease screen time with your headache. If you have any other concerns please returnn to the ED. Prescriptions: No Action multivitamin Tablet 1 tab PO DAILY losartan 50 mg tablet 1 tab PO DAILY pantoprazole 40 mg tablet,delayed release (DR/EC) 1 tab PO BID tadalafil [Cialis] 20 mg tablet 1 tab PO DAILY PRN (Reason: Erectile Dysfunction) atorvastatin 40 mg tablet 40 mg PO DAILY aspirin 81 mg tablet,delayed release (DR/EC) 81 mg PO DAILY cephalexin 500 mg capsule 500 mg PO QID 7 Days Qty: 28 0RF
[2022-09-29 10:42] VITALS: BP 173/110; PULSE 91; RESP 16; O2SAT 95
== END 2022-09-29 10:44 | disposition home or self-care (01) ==
PROVIDERS: Emergency Provider Student in an Organized Health Care Education/Training Program; PCP Internal Medicine
DX: S06.0X0A Concussion without loss of consciousness, initial encounter (principal); W22.8XXA Striking against or struck by other objects, initial encounter; Y93.9 Activity, unspecified; Y92.9 Unspecified place or not applicable; Y99.9 Unspecified external cause status
CPT/HCPCS: 36415; 80053; 85025; 99283; 99284

== ENCOUNTER 2023-03-17 08:41 | Outpatient (REF) | payer BC, SELFPAY ==
[2023-03-17 11:21] LABS: MANUAL DIFF FLAG NO
[2023-03-17 11:35] LABS: Basophils Percent Auto 0.7 % (0-2); Eosinophils Absolute Auto 0.1 X10*3/uL (0.0-0.4); Eosinophils Percent Auto 2.4 % (0-4); Hematocrit 32.5 % (42.0-52.0); Hemoglobin 10.8 g/dl (14.0-18.0); Imm Gran Abs Auto 0.04 X10*3/uL (0.00-0.03); Imm Gran Pct Auto 0.7 % (0.0-0.4); Lymphocytes Absolute Auto 1.1 X10*3/uL (1.2-4.9); Lymphocytes Percent Auto 19.8 % (20-40); Mean Corpuscular HGB Conc 33.2 g/dl (31.0-36.0); Mean Corpuscular Hemoglobin 32.6 pg (27.0-33.0); Mean Corpuscular Volume 98.2 fL (80.0-98.0); Mean Platelet Volume 10.3 fL (9.4-12.4); Monocytes Absolute Auto 0.8 X10*3/uL (0.1-1.2); Monocytes Percent Auto 13.8 % (2-11); Neutrophils Absolute Auto 3.5 x10*3/uL (2.0-8.3); Neutrophils Percent Auto 62.6 % (45-73); Platelet Count 200 X10*3/uL (160-400); Red Blood Count 3.31 X10*6/uL (4.60-5.80); Red Cell Distribution Width 13.3 % (11.0-16.0); White Blood Count 5.5 X10*3/uL (4.8-10.8)
[2023-03-17 12:02] LABS: Alanine Aminotransferase 40 U/L (0-40); Albumin Level 4.4 g/dL (3.5-5.0); Alkaline Phosphatase 85 U/L (39-117); Anion Gap 17 (12-20); Aspartate Amino Transferase 47 U/L (5-37); Bilirubin Total 0.6 mg/dL (0.0-1.0); Blood Urea Nitrogen 40 mg/dL (9-16); Calcium 9.6 mg/dL (8.4-10.2); Carbon Dioxide 21 mmol/L (22-29); Chloride 109 mmol/L (96-108); Cholesterol 189 mg/dL; Estimated Glomerular Filt Rate 30; Glucose Fasting 87 mg/dL (60-99); HDL Cholesterol 75 mg/dL; LDL Cholesterol Calculated 66 mg/dl; Potassium 4.5 mmol/L (3.3-5.1); Sodium 142 mmol/L (135-145); Total Protein 6.8 g/dL (6.5-8.0); Triglycerides 242 mg/dL
== END 2023-03-17 08:42 | disposition home or self-care (01) ==
LOC: HO.HMGCLDS 08:41
PROVIDERS: PCP Internal Medicine; Visit Provider Internal Medicine
DX: F41.9 Anxiety disorder, unspecified (principal); E78.00 Pure hypercholesterolemia, unspecified; I63.9 Cerebral infarction, unspecified; R10.13 Epigastric pain
CPT/HCPCS: 36415; 80053; 80061; 84443; 85025

== ENCOUNTER 2023-04-08 08:34 | Outpatient (REF) | payer BC, SELFPAY ==
[2023-04-08 11:34] LABS: MANUAL DIFF FLAG NO
[2023-04-08 11:35] LABS: Basophils Percent Auto 0.8 % (0-2); Eosinophils Absolute Auto 0.2 X10*3/uL (0.0-0.4); Eosinophils Percent Auto 4.2 % (0-4); Hematocrit 33.2 % (42.0-52.0); Hemoglobin 11.1 g/dl (14.0-18.0); Imm Gran Abs Auto 0.04 X10*3/uL (0.00-0.03); Imm Gran Pct Auto 0.8 % (0.0-0.4); Lymphocytes Percent Auto 19.9 % (20-40); Mean Corpuscular HGB Conc 33.4 g/dl (31.0-36.0); Mean Corpuscular Hemoglobin 33.9 pg (27.0-33.0); Mean Corpuscular Volume 101.5 fL (80.0-98.0); Mean Platelet Volume 10.2 fL (9.4-12.4); Monocytes Absolute Auto 0.9 X10*3/uL (0.1-1.2); Monocytes Percent Auto 17.5 % (2-11); Neutrophils Absolute Auto 2.9 x10*3/uL (2.0-8.3); Neutrophils Percent Auto 56.8 % (45-73); Platelet Count 163 X10*3/uL (160-400); Red Blood Count 3.27 X10*6/uL (4.60-5.80); Red Cell Distribution Width 15.2 % (11.0-16.0)
[2023-04-08 12:06] LABS: Anion Gap 16 (12-20); Blood Urea Nitrogen 13 mg/dL (9-16); Carbon Dioxide 24 mmol/L (22-29); Chloride 105 mmol/L (96-108); Estimated Glomerular Filt Rate > 60; Glucose Random 95 mg/dL (60-115); Potassium 3.9 mmol/L (3.3-5.1); Sodium 141 mmol/L (135-145)
[2023-04-08 16:22] LABS: Appearance Urine Clear; Color Urine Dark Yellow; Glucose Urine UA Negative (Negative); Leukocyte Esterase Urine Negative (Negative); Nitrite Urine Negative (Negative); PH 7.5 (5.0-9.0); UMIC TRIGGER UA YES; Urine Blood Negative (Negative); Urine Ketones 15 mg/dL (Negative); Urine Protein 100 (2+) mg/dL (Neg-Trace)
[2023-04-08 16:42] LABS: Bacteria Urine Trace (None Seen); Hyaline Casts Urine 0-2 /LPF (0-2); Squamous Epithelial Cell Urine 0-2 /HPF (0-2)
== END 2023-04-08 08:35 | disposition home or self-care (01) ==
LOC: HO.HMGCLDS 08:34
PROVIDERS: PCP Internal Medicine; Visit Provider Internal Medicine
DX: I10 Essential (primary) hypertension (principal); N28.9 Disorder of kidney and ureter, unspecified
CPT/HCPCS: 36415; 80048; 81001; 85025

== ENCOUNTER 2023-05-06 08:18 | Outpatient (REF) | payer BC, SELFPAY ==
[2023-05-06 12:36] LABS: Alanine Aminotransferase 87 U/L (0-40); Albumin Level 4.4 g/dL (3.5-5.0); Alkaline Phosphatase 119 U/L (39-117); Anion Gap 18 (12-20); Aspartate Amino Transferase 200 U/L (5-37); Bilirubin Total 1.8 mg/dL (0.0-1.0); Blood Urea Nitrogen 13 mg/dL (9-16); Calcium 9.3 mg/dL (8.4-10.2); Carbon Dioxide 23 mmol/L (22-29); Chloride 104 mmol/L (96-108); Estimated Glomerular Filt Rate > 60; Glucose Random 133 mg/dL (60-115); Iron 79 mcg/dL (45-160); Percent Iron Saturation 28 % (15-50); Potassium 3.5 mmol/L (3.3-5.1); Sodium 141 mmol/L (135-145); Total Iron Binding Capacity 283 mcg/dL (228-428); Total Protein 6.8 g/dL (6.5-8.0); Unsaturated Iron Binding 204 ug/dL
[2023-05-06 12:46] LABS: Ferritin 684 ng/mL (20-250)
[2023-05-11 14:53] LABS: Vitamin B1 26 nmol/L (8-30)
== END 2023-05-06 08:19 | disposition home or self-care (01) ==
LOC: HO.HMGCLDS 08:18
PROVIDERS: PCP Internal Medicine; Visit Provider Internal Medicine
DX: I10 Essential (primary) hypertension (principal); D64.9 Anemia, unspecified
CPT/HCPCS: 36415; 80053; 82607; 82728; 82746; 83540; 84425; 85025

== ENCOUNTER → 2023-06-22 12:35 | Outpatient (REF) | payer BC, SELFPAY ==
--- NOTE | 2023-06-22 12:38 | CA_ITS ---
Transthoracic Echocardiogram Patient (Last, First, Middle): Sandeep Coulter, Gender: Male Date of : 1965 Age: 58 Procedure Date: 06/22/2023 Procedure Type: Transthoracic Echocardiogram Location: OP Height: 180.34 cm Weight: 108.86 kg BSA: 2.28 m2 Heart Rate: 88 bpm BP: 155 / 100 mmHg Pie Maker: IRA Referring MD: Pineda Renteria DO Symptoms: HTN Study Quality: Fair ECG Rhythm: Sinus Conclusions: - The left ventricular systolic function is normal. The calculated ejection fraction is 67% by biplane method. - There is mild septal and mild basal asymmetric hypertrophy. - There is mild calcification of the aortic valve. - No obvious valvular pathology seen on this study. Findings Left Ventricle Normal left ventricular cavity size. The left ventricular systolic function is normal. The calculated ejection fraction is 67% by biplane method. There is no evidence of regional wall motion abnormalities. Diastolic function is normal for age. There is mild septal and mild basal asymmetric hypertrophy. LV peak GLS -17.7%. Right Ventricle Normal right ventricular cavity size and systolic function. Atria Both atria are normal in size. Aortic Valve There is mild calcification of the aortic valve. There is no aortic valve stenosis. There is no aortic valve regurgitation. Mitral Valve The mitral valve appears normal. There is no mitral valve regurgitation. There is no mitral valve stenosis. Pulmonic Valve The pulmonic valve is likely normal. Tricuspid Valve Normal tricuspid valve structure. There is trace tricuspid valve regurgitation. Tricuspid regurgitation envelope is inadequate for calculation of right ventricular systolic pressure. Great Vessels The asc aorta is normal in size. Venous The inferior vena cava was not well visualized. Pericardium/Pleural There is no evidence of pericardial effusion. Prior Study Comparison No prior study available for comparison. Recommendations, Care & Conclusions No obvious valvular pathology seen on this study. Measurements 2D Linear Measurements IVSd: 0.83 0.6-0.9/0.6-1.0 cm LVIDd: 4.89 3.9-5.3/4.2-5.9 cm LVIDd Index: 2.14 2.4-3.2/2.2-3.1 cm/m2 LVIDs: 2.80 2.0-3.6 cm LVPWd: 0.87 0.7-1.1 cm LA Diam: 3.40 2.7-3.8/3.0-4.0 cm LAIDs Index: 1.49 1.5-2.3 cm/m2 LV Mass: 176.44 67-162/88-224 g LV Mass Index: 77.39 43-95/49-115 g/m2 LVOT Diam: 2.20 3.0+(-)1.3 cm 2D Systolic Function EF 4C: 65.00 >55% EF 2C: 67.10 >55% EF BiP: 67.00 >55% Mitral Valve MV Pk E: 0.65 MV PK A: 1.07 MV Decel Time: 302.00 E/A: 0.60 E'Lateral: 9.46 E'Medial: 7.18 E/E' Med: 9.10 E/E' Lat: 6.90 PHT: 88.00 MVA PHT: 2.50 Decel [place]: 2.15 Aortic Valve AoV Pk Francis: 1.61 AoV Mn Francis: 1.14 AoV VTI: 0.30 AoV Pk Grad: 10.00 Aov Mn Grad: 6.00 LETTY Cont.VTI: 2.61 LVOT LVOT Pk Francis: 1.13 LVOT Mn Francis: 0.82 LVOT VTI: 0.21 LVOT Pk Grad: 5.00 LVOT Mn Grad: 3.00 LVOT Diam: 2.20 LVOT Area: 3.80 Diastolic Function MV Pk E: 0.65 MV Pk A: 1.07 E/A: 0.60 E'Medial: 7.18 E/E' Med: 9.10 E' Laterial: 9.46 E/E' Lat: 6.90 Right Ventricle TAPSE (mm): 22.10 TVS' Francis: 16.10 Great Vessels Aorta Sinus of Valsalva: 3.50 2.0-3.5 cm Ao Asc: 3.50 2.1-3.4 cm Pulmonary Valve PV Pk Francis: 1.22 Peak PV Grad: 6.00 Updated in Other Vendor System with Status of Final Jayme Sunshine MD electronically signed on 06/23/2023 12:04:42 PM with status of Final
== END ==
LOC: HO.CARD 12:35
PROVIDERS: PCP Internal Medicine; Visit Provider Internal Medicine
DX: I10 Essential (primary) hypertension (principal)
CPT/HCPCS: 93306; 93356

== ENCOUNTER → 2023-06-22 12:38 | Outpatient (BNV) | payer BC, SELFPAY | PROVIDERS: PCP Internal Medicine; Visit Provider Internal Medicine | DX: I10 Essential (primary) hypertension (principal) | CPT/HCPCS: 93306 ==

== ENCOUNTER 2023-07-27 08:20 | Outpatient (REF) | payer BC, SELFPAY ==
--- NOTE | ~2023-07-27 | US_ITS ---
EXAMINATION: US ABDOMEN COMPLETE CLINICAL INFORMATION: Nausea with vomiting. COMPARISON: None available. TECHNIQUE: Real-time imaging of the abdominal viscera. FINDINGS: PANCREAS: Normal. ABDOMINAL AORTA: The proximal, mid, and distal segments are normal in caliber. INFERIOR VENA CAVA: Visualized portions are normal. LIVER: The liver is normal in size. The liver contour is normal. Increased hepatic echogenicity which can be seen in the setting of hepatic steatosis or underlying liver disease. No focal hepatic lesion. There is no intrahepatic biliary duct dilatation seen. GALLBLADDER: Trace sludge within the gallbladder. The gallbladder is physiologically distended without evidence of stones, polyps, wall thickening or pericholecystic fluid. COMMON BILE DUCT: Normal in caliber measuring 0.35 cm in diameter. RIGHT KIDNEY: Benign-appearing renal cyst measuring 1 cm. No follow up imaging is recommended. No hydronephrosis or renal calculi. The kidney measures 10.7 cm in maximum dimension. LEFT KIDNEY: Normal. No hydronephrosis. No renal calculi or focal parenchymal lesions. The kidney measures 10.7 cm in maximum dimension. SPLEEN: Normal. The spleen measures 11.2 cm in maximum dimension. FREE FLUID: None. US/US abdomen complete IMPRESSION: 1. Trace sludge within the gallbladder. No cholelithiasis or evidence of acute cholecystitis. 2. Increased hepatic echogenicity which can be seen in the setting of hepatic steatosis or underlying liver disease.
== END 2023-07-27 08:21 | disposition home or self-care (01) ==
LOC: HO.HMGCX 08:20
PROVIDERS: PCP Internal Medicine; Visit Provider Internal Medicine Gastroenterology
DX: R11.2 Nausea with vomiting, unspecified (principal)
CPT/HCPCS: 76700

== ENCOUNTER 2023-09-06 12:16 | Day surgery (SDC) | payer BC, SELFPAY ==
--- NOTE | 2023-08-01 09:10 | HO.ANESPROP2 ---
HPI - Anesthesia Eval Consult details Narrative: 58yo M for Upper Endoscopy PMFSH Active Problems Active Problems: All Active Problems (Updated 08/01/23 @ 08:14 by Fe Costello, RN) Toe injury (Acute) Cellulitis (Acute) Past Medical History Medical History (Updated 08/01/23 @ 08:14 by Fe Costello RN) Marcano esophagus Cervical spine fracture GERD (gastroesophageal reflux disease) Elevated cholesterol HTN (hypertension) Surgical History Surgical History (Updated 08/01/23 @ 08:13 by Fe Costello RN) History of esophagogastroduodenoscopy (EGD) History of surgery on right wrist Hx of tonsillectomy Hx of cervical spine surgery History of meniscectomy of right knee Hx of repair of left rotator cuff H/O colonoscopy History of Problems with Anesthesia: No Social History Social History Alcohol intake: current Alcohol intake frequency: 0-2 drinks per day Patient Tobacco Use Status: Never used Tobacco Meds Allergies Allergy/AdvReac Type Severity Reaction Status Date / Time ENVIRONMENTAL Allergy Intermediate NASAL Uncoded 03/17/22 11:26 STUFFINESS Home Medications Medication Instructions Recorded Confirmed Last Taken Type aspirin 81 mg tablet,delayed 81 mg PO DAILY 05/19/21 03/17/22 Unknown History release atorvastatin 40 mg tablet 40 mg PO DAILY 05/19/21 03/17/22 Unknown History losartan 50 mg tablet 1 tab PO DAILY 03/17/22 03/17/22 Unknown History multivitamin 1 tab PO DAILY 03/17/22 03/17/22 Unknown History pantoprazole 40 mg tablet,delayed 1 tab PO BID 03/17/22 03/17/22 Unknown History release tadalafil 20 mg tablet (Cialis) 1 tab PO DAILY PRN Erectile 03/17/22 03/17/22 Unknown History Dysfunction amlodipine 5 mg tablet 5 mg PO DAILY 08/01/23 08/01/23 Unknown History Exam Exam Date and Time: August 01, 2023909 Pertinent Lab Results Pertinent Lab Results: Laboratory Tests 05/06/23 08:24 WBC 4.9 Hgb 12.9 L Hct 38.0 L Plt Count 151 L Sodium 141 Potassium 3.5 Chloride 104 Carbon Dioxide 23 BUN 13 Creatinine 0.94 Assessment and Plan Assessment Anesthesia Assessment: Chart Reviewed Final Anesthetic Review History of Problems with Anesthesia: No
--- NOTE | 2023-09-05 10:07 | HO.ANESPROP2 ---
Documented by User: Patience Shipley NP 09/05/23 10:08 HPI - Anesthesia Eval Consult details Narrative: 58yo M for Upper Endoscopy PMFSH Active Problems Active Problems: All Active Problems (Updated 08/01/23 @ 08:14 by Fe Costello RN) Toe injury (Acute) Cellulitis (Acute) Past Medical History Medical History (Updated 08/01/23 @ 08:14 by Fe Costello RN) Marcano esophagus Cervical spine fracture GERD (gastroesophageal reflux disease) Elevated cholesterol HTN (hypertension) Surgical History Surgical History (Updated 08/01/23 @ 08:13 by Fe Costello RN) History of esophagogastroduodenoscopy (EGD) History of surgery on right wrist Hx of tonsillectomy Hx of cervical spine surgery History of meniscectomy of right knee Hx of repair of left rotator cuff H/O colonoscopy History of Problems with Anesthesia: No Social History Social History Alcohol intake: current Alcohol intake frequency: 3 or more drinks per day Patient Tobacco Use Status: Never used Tobacco Second Hand Smoke Exposure: No Use of substances other than those prescribed or required for medical reasons: No Are you DNR?: No Advance Directives: No Advance Directives Information Provided: Yes Advance Directives on File: No Meds Allergies Allergy/AdvReac Type Severity Reaction Status Date / Time ENVIRONMENTAL Allergy Intermediate NASAL Uncoded 09/06/23 12:33 STUFFINESS Home Medications Medication Instructions Recorded Confirmed Last Taken Type aspirin 81 mg tablet,delayed 81 mg PO DAILY 05/19/21 09/06/23 08/30/23 History release atorvastatin 40 mg tablet 40 mg PO DAILY 05/19/21 09/06/23 09/06/23 History losartan 50 mg tablet 1 tab PO DAILY 03/17/22 09/06/23 09/06/23 History multivitamin 1 tab PO DAILY 03/17/22 09/06/23 09/06/23 History pantoprazole 40 mg tablet,delayed 1 tab PO BID 03/17/22 09/06/23 09/06/23 History release tadalafil 20 mg tablet (Cialis) 1 tab PO DAILY PRN Erectile 03/17/22 09/06/23 Unknown History Dysfunction amlodipine 5 mg tablet 5 mg PO DAILY 08/01/23 09/06/23 09/06/23 History Exam Exam Date and Time: September 05, 2023 1007 Pertinent Lab Results Pertinent Lab Results: Laboratory Tests 05/06/23 08:24 WBC 4.9 Hgb 12.9 L Hct 38.0 L Plt Count 151 L Sodium 141 Potassium 3.5 Chloride 104 Carbon Dioxide 23 BUN 13 Creatinine 0.94 Assessment and Plan Assessment Anesthesia Assessment: Chart Reviewed Final Anesthetic Review History of Problems with Anesthesia: No Documented by User: Daniel Martinez MD 09/06/23 12:47 PMF Past Medical History Medical History (Updated 08/01/23 @ 08:14 by Fe Costello RN) Marcano esophagus Cervical spine fracture GERD (gastroesophageal reflux disease) Elevated cholesterol HTN (hypertension) Family History Family history of problems with anesthesia: No Surgical History Surgical History (Updated 08/01/23 @ 08:13 by Fe Costello RN) History of esophagogastroduodenoscopy (EGD) History of surgery on right wrist Hx of tonsillectomy Hx of cervical spine surgery History of meniscectomy of right knee Hx of repair of left rotator cuff H/O colonoscopy Social History Social History Alcohol intake: current Alcohol intake frequency: 3 or more drinks per day Patient Tobacco Use Status: Never used Tobacco Second Hand Smoke Exposure: No Use of substances other than those prescribed or required for medical reasons: No Are you DNR?: No Advance Directives: No Advance Directives Information Provided: Yes Advance Directives on File: No Meds Allergies Allergy/AdvReac Type Severity Reaction Status Date / Time ENVIRONMENTAL Allergy Intermediate NASAL Uncoded 09/06/23 12:33 STUFFINESS Home Medications Medication Instructions Recorded Confirmed Last Taken Type aspirin 81 mg tablet,delayed 81 mg PO DAILY 05/19/21 09/06/23 08/30/23 History release atorvastatin 40 mg tablet 40 mg PO DAILY 05/19/21 09/06/23 09/06/23 History losartan 50 mg tablet 1 tab PO DAILY 03/17/22 09/06/23 09/06/23 History multivitamin 1 tab PO DAILY 03/17/22 09/06/23 09/06/23 History pantoprazole 40 mg tablet,delayed 1 tab PO BID 03/17/22 09/06/23 09/06/23 History release tadalafil 20 mg tablet (Cialis) 1 tab PO DAILY PRN Erectile 03/17/22 09/06/23 Unknown History Dysfunction amlodipine 5 mg tablet 5 mg PO DAILY 08/01/23 09/06/23 09/06/23 History Exam Narrative Narrative: head and neck habitus sug of VALERIA. 20 Yrs ago had sleep study that said he had VALERIA. Airway Mallampati Class: II TM Dist: <=3cm Neck ROM: Full Heart: ok. HR 116, SR Lungs: ok, SpO2 96% room air Assessment and Plan Assessment Anesthesia Assessment: Anesthesia Plan Discussed Final Anesthetic Review Family History of Problems with Anesthesia: No NPO: Yes ASA Class: II and III Final Preanesthetic Review: No Changes in Pt Med Stat, Meds/Allgs Chart Reviewed, Consent Obtained/Reviewed and Anes Risks/Benef Reviewed Patient Risk: Intermediate Procedure Risk: Intermediate Anesthetic Plan Anesthetic Plan: GA, MAC: and Agree w/ Assess. and Plan Disposition: Standard PACU
[2023-09-06 12:21] VITALS: BMI 34.0
[2023-09-06 12:34] VITALS: BP 158/103; PULSE 114; RESP 16; TEMP 36.9; O2SAT 94
--- NOTE | 2023-09-06 12:41 | MHC.SHP ---
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, Nausea with Details of Present Illness: see H&P no changes Relevant Family History (Specify if Yes): No Relevant Social History: None Present Medications: see Short Stay Collaborative assessment Medical History: No relevant PMH History of Previous Operations: No relevant previous surgery Allergies: Allergies Allergy/AdvReac Type Severity Reaction Status Date / Time ENVIRONMENTAL Allergy Intermediate NASAL Uncoded 09/06/23 12:33 STUFFINESS Review of Systems Sugical H&P ROS: Negative: Constitution, Cardiovascular, Respiratory, Neurological, Psychiatric, Hem-Onc, Allergic/Immunologic, Gastrointestinal, Genitourinary, Musculoskeletal, Integumentary, Endocrine and Eyes/Ears/Nose/Throat Exam Surgical H&P Exam: Normal: HEENT, Normal: Heart, Normal: Lungs, Normal: Extremities, Normal: Abdomen, Normal: Skin and Normal: Neurological Plan I have reviewed the history and physical and performed a pertinent physical examination on my patient. No changes have occurred unless specified. Time Spent With Patient Time: Total time managing care of this patient today ____ minutes.
--- NOTE | 2023-09-06 13:28 | P.BOP_ITS ---
Brief Operative Note Date of Service: 09/06/23 Pre-op diagnosis: see h*p no changes Post-op diagnosis: same Procedure: EGD Surgeon: Shady Almodovar MD Anesthesia: MAC Was an Insurance Consultant used for this Procedure?: No Estimated blood loss (mL): 2 Pathology: other Condition: stable Disposition: PACU
[2023-09-06 13:41] VITALS: BP 139/88; PULSE 98; RESP 16; TEMP 37.3; O2SAT 96
[2023-09-06 13:56] VITALS: BP 154/89; PULSE 100; RESP 16; TEMP 36.9; O2SAT 95
--- NOTE | 2023-09-06 19:03 | OP_ITS ---
DATE OF SERVICE: 09/06/2023 SURGEON: Shady Almodovar MD INDICATIONS: 1. Marcano's esophagus. 2. Nausea and vomiting. PREOPERATIVE DIAGNOSIS: POSTOPERATIVE DIAGNOSIS: PROCEDURE PERFORMED: Upper endoscopy with biopsy. ESTIMATED BLOOD LOSS: COMPLICATIONS: ANESTHESIA: Monitored anesthesia care. ASSISTANTS: SPECIMENS: DESCRIPTION OF PROCEDURE: A history and physical were performed. The risks and benefits of the procedure were explained to the patient, and informed consent was obtained. The patient was placed in the left lateral decubitus position. Initial attempts to intubate the esophagus with an LMA in place was not successful. The LMA was removed and the esophagus was successfully intubated. The scope was advanced into the stomach and duodenum. Examination was performed and the scope was removed. He tolerated the procedure well and was returned to recovery in stable condition. FINDINGS: Esophagus: There was no stricture present. There was no esophagitis. There was an irregular EG junction where biopsies previously had shown Marcano's esophagus. There were no raised lesions or ulcerated areas. Biopsies were obtained from the EG junction and at 35 cm to rule out eosinophilic esophagitis. Stomach: The stomach showed no evidence of masses, ulcers, or polyps. The previous biopsies had shown no H. pylori and biopsies were not repeated. Duodenum, the bulb and second portion were normal. IMPRESSION: 1. Marcano esophagus. 2. Nausea and vomiting. RECOMMENDATION: 1. Follow up the biopsy results. 2. Trial of dicyclomine 20 mg q.i.d. MD BYRON Chu/ALBERTO / [id number]
== END 2023-09-06 14:38 | disposition home or self-care (01) ==
PROVIDERS: PCP Internal Medicine; Visit Provider Internal Medicine Gastroenterology
PROC: 0DJ08ZZ Inspection of Upper Intestinal Tract, Via Natural or Artificial Opening Endoscopic (ICD-10-PCS; CPT 43235; principal; 2023-09-06 11:50)
DX: K22.70 Barrett's esophagus without dysplasia (principal); R11.2 Nausea with vomiting, unspecified; K21.9 Gastro-esophageal reflux disease without esophagitis; R53.83 Other fatigue; I10 Essential (primary) hypertension; E78.00 Pure hypercholesterolemia, unspecified; Z98.890 Other specified postprocedural states; Z79.899 Other long term (current) drug therapy; Z79.82 Long term (current) use of aspirin
CPT/HCPCS: 43239; 88305; J2250

== ENCOUNTER → 2023-11-03 07:42 | Outpatient (REF) | payer BC, SELFPAY | LOC: HO.NUCMED 07:42 | PROVIDERS: PCP Internal Medicine; Visit Provider Internal Medicine Gastroenterology | DX: R11.10 Vomiting, unspecified (principal) | CPT/HCPCS: 78264; A9541 ==

== ENCOUNTER → 2023-12-12 10:55 | Outpatient (REF) | payer BC, SELFPAY ==
--- NOTE | ~2023-12-12 | NM_ITS ---
EXAMINATION: BILIARY TRACT IMAGING STUDY WITH CCK CLINICAL INFORMATION: Nausea and vomiting. Sludge in the gallbladder.. COMPARISON: Abdominal ultrasound done on 07/27/2023 and radionuclide gastric emptying study done on 11/03/2023.. TECHNIQUE: Serial gamma scintillation camera images were obtained over the abdomen for a total observation period of 60 minutes following the intravenous administration of 5 mCi Tc-99m mebrofenin. FINDINGS: There is good concentration of activity in the liver by 5 minutes post injection. Biliary activity is visualized by 8 minutes. The gallbladder is well visualized by 15 minutes. Small bowel is well visualized by 15 minutes. At 60 minutes post radiopharmaceutical injection, a 30-minute infusion of 2.2 micrograms Sincalide was then begun and an additional 40 minutes of images were obtained. There is near complete emptying of the gallbladder. By the end of the study there is good clearance of activity from the liver and visualization of diffuse small bowel activity. The calculated gallbladder ejection fraction is 89% (Normal range of gallbladder ejection fraction is between 35-80%; GBEF <35% is considered biliary hypokinesia and >80% is considered biliary hyperkinesia; Clinical Journal of Gastroenterology (2020) 14:1308?1317). NM/NM hepatobiliary w pharm IMPRESSION: Visualization of the gallbladder is evidence of a patent cystic duct and strong evidence against the diagnosis of acute cholecystitis. The common bile duct is patent. Gallbladder emptying and ejection fraction are abnormal. Liver function appears normal. 2nd REF: [email or web address] and-Hepatology.
== END ==
LOC: HO.NUCMED 10:55
PROVIDERS: PCP Internal Medicine; Visit Provider Internal Medicine Gastroenterology
DX: R11.2 Nausea with vomiting, unspecified (principal)
CPT/HCPCS: 78227; A9537; J2805

== ENCOUNTER 2024-02-21 08:32 | Outpatient (REF) | payer BC, SELFPAY ==
[2024-02-21 10:18] LABS: MANUAL DIFF FLAG NO
[2024-02-21 10:42] LABS: Basophils Absolute Auto 0.1 X10*3/uL (0.0-0.2); Eosinophils Absolute Auto 0.3 X10*3/uL (0.0-0.4); Eosinophils Percent Auto 3.7 % (0-4); Hematocrit 42.4 % (42.0-52.0); Imm Gran Abs Auto 0.02 X10*3/uL (0.00-0.03); Imm Gran Pct Auto 0.3 % (0.0-0.4); Lymphocytes Absolute Auto 1.8 X10*3/uL (1.2-4.9); Lymphocytes Percent Auto 25.9 % (20-40); Mean Corpuscular Hemoglobin 32.9 pg (27.0-33.0); Mean Corpuscular Volume 99.5 fL (80.0-98.0); Mean Platelet Volume 10.6 fL (9.4-12.4); Monocytes Absolute Auto 0.9 X10*3/uL (0.1-1.2); Monocytes Percent Auto 13.4 % (2-11); Neutrophils Absolute Auto 3.9 x10*3/uL (2.0-8.3); Neutrophils Percent Auto 55.7 % (45-73); Platelet Count 302 X10*3/uL (160-400); Red Blood Count 4.26 X10*6/uL (4.60-5.80); Red Cell Distribution Width 12.4 % (11.0-16.0)
[2024-02-21 11:57] LABS: Alanine Aminotransferase 41 U/L (0-40); Albumin Level 4.2 g/dL (3.5-5.0); Alkaline Phosphatase 116 U/L (39-117); Anion Gap 12 (12-20); Aspartate Amino Transferase 31 U/L (5-37); Bilirubin Total 0.5 mg/dL (0.0-1.0); Blood Urea Nitrogen 9 mg/dL (9-16); Calcium 9.7 mg/dL (8.4-10.2); Carbon Dioxide 26 mmol/L (22-29); Chloride 108 mmol/L (96-108); Cholesterol 181 mg/dL (<200); Estimated Glomerular Filt Rate > 60; Glucose Fasting 100 mg/dL (60-99); HDL Cholesterol 48 mg/dL (>40); LDL Cholesterol Calculated 110 mg/dL (<100); Potassium 4.4 mmol/L (3.3-5.1); Sodium 142 mmol/L (135-145); Triglycerides 116 mg/dL (<150)
== END 2024-02-21 08:33 | disposition home or self-care (01) ==
LOC: HO.HMGCLDS 08:32
PROVIDERS: PCP Internal Medicine; Visit Provider Internal Medicine
DX: R10.13 Epigastric pain (principal); I10 Essential (primary) hypertension; I63.9 Cerebral infarction, unspecified; E78.00 Pure hypercholesterolemia, unspecified
CPT/HCPCS: 36415; 80053; 80061; 85025

== ENCOUNTER 2024-05-30 07:57 | Outpatient (REF) | payer BC, SELFPAY ==
[2024-05-30 10:22] LABS: MANUAL DIFF FLAG NO
[2024-05-30 10:39] LABS: Basophils Percent Auto 0.5 % (0-2); Eosinophils Absolute Auto 0.3 X10*3/uL (0.0-0.4); Eosinophils Percent Auto 3.6 % (0-4); Hematocrit 41.1 % (42.0-52.0); Hemoglobin 13.6 g/dl (14.0-18.0); Imm Gran Abs Auto 0.02 X10*3/uL (0.00-0.03); Imm Gran Pct Auto 0.3 % (0.0-0.4); Lymphocytes Absolute Auto 1.7 X10*3/uL (1.2-4.9); Lymphocytes Percent Auto 22.7 % (20-40); Mean Corpuscular HGB Conc 33.1 g/dl (31.0-36.0); Mean Corpuscular Hemoglobin 31.7 pg (27.0-33.0); Mean Corpuscular Volume 95.8 fL (80.0-98.0); Mean Platelet Volume 11.2 fL (9.4-12.4); Monocytes Percent Auto 13.9 % (2-11); Neutrophils Absolute Auto 4.4 x10*3/uL (2.0-8.3); Platelet Count 249 X10*3/uL (160-400); Red Blood Count 4.29 X10*6/uL (4.60-5.80); Red Cell Distribution Width 14.1 % (11.0-16.0); White Blood Count 7.4 X10*3/uL (4.8-10.8)
[2024-05-30 11:03] LABS: PSA,Total (Free>4and<10) 1.61 ng/mL (0.00-4.00)
[2024-05-30 11:14] LABS: Anion Gap 15 (12-20)
[2024-05-30 11:19] LABS: Alanine Aminotransferase 30 U/L (0-40); Albumin Level 4.5 g/dL (3.5-5.0); Alkaline Phosphatase 99 U/L (39-117); Aspartate Amino Transferase 24 U/L (5-37); Bilirubin Total 0.5 mg/dL (0.0-1.0); Blood Urea Nitrogen 13 mg/dL (9-16); Carbon Dioxide 25 mmol/L (22-29); Chloride 106 mmol/L (96-108); Cholesterol 175 mg/dL (<200); Estimated Glomerular Filt Rate > 60; Glucose Fasting 98 mg/dL (60-99); HDL Cholesterol 43 mg/dL (>40); Iron 73 mcg/dL (45-160); LDL Cholesterol Calculated 106 mg/dL (<100); Percent Iron Saturation 22 % (15-50); Potassium 4.7 mmol/L (3.3-5.1); Sodium 141 mmol/L (135-145); Total Iron Binding Capacity 338 mcg/dL (228-428); Total Protein 6.7 g/dL (6.5-8.0); Triglycerides 133 mg/dL (<150); Unsaturated Iron Binding 265 ug/dL
[2024-05-30 11:20] LABS: Ferritin 80 ng/mL (20-250); Thyroid Stimulating Hormone 3.39 uIU/mL (0.32-4.0); Vitamin D 25-OH Total 49.3 ng/mL (>30)
[2024-05-30 13:11] LABS: Appearance Urine Clear; Color Urine Dark Yellow; Glucose Urine UA Negative (Negative); Leukocyte Esterase Urine Trace (Negative); Nitrite Urine Negative (Negative); PH 6.5 (5.0-9.0); UMIC TRIGGER UA YES; Urine Blood Negative (Negative); Urine Ketones Trace mg/dL (Negative); Urine Protein Negative (Neg-Trace)
[2024-05-30 13:14] LABS: Bacteria Urine None Seen (None Seen); Hyaline Casts Urine 0-2 /LPF (0-2); RBC Urine 0-2 /HPF (0-2); Squamous Epithelial Cell Urine 0-2 /HPF (0-2); WBC Urine 0-5 /HPF (0-5)
== END 2024-05-30 07:58 | disposition home or self-care (01) ==
LOC: HO.HMGCLDS 07:57
PROVIDERS: PCP Internal Medicine; Visit Provider Internal Medicine
DX: Z00.00 Encounter for general adult medical examination without abnormal findings (principal); Z12.5 Encounter for screening for malignant neoplasm of prostate; I10 Essential (primary) hypertension; E78.00 Pure hypercholesterolemia, unspecified
CPT/HCPCS: 36415; 80053; 80061; 81001; 82306; 82728; 83540; 84153; 84443; 85025

== ENCOUNTER → 2024-12-05 09:43 | Outpatient (BNVA) | payer BC, SELFPAY | PROVIDERS: PCP Internal Medicine; Visit Provider Internal Medicine ==

== ENCOUNTER 2024-12-18 07:07 | Outpatient (REF) | payer BC, SELFPAY ==
--- OUTSIDE RECORDS SUMMARY | 2024-12-18 07:09 | XMS_ITS ---
Author Organization [facility] Address [address] [place] [address] Care Team Providers Care Surgical Technologist Name Role Phone Dexter (RETIRED) Pineda SIMENTAL Primary Care Provid er Unavailable Shady Almodovar Jr REASON FOR VISIT x-ray results Encounters Encounter Location Date Provider Diagnosis [facility] [address] [place] [id number] 12/14/2023 Shady Almodovar Jr PLAN OF TREATMENT No Information
--- OUTSIDE RECORDS SUMMARY | 2024-12-18 07:09 | XMS_ITS | Patient Health Record ---
Author Organization [facility] Address [address] [place] [address] Care Team Providers Care Flight Engineer Performance Qualified Name Role Phone Dexter (RETIRED) Pineda SIMENTAL Primary Care Provid er Unavailable Shady Almodovar Jr Unavailable [phone] ALLERGIES No Known Allergies REASON FOR REFERRAL No Information MEDICATIONS Medication SIG (Take, Route, Frequency, Duration) Notes Start Date End Date Status Atorvastatin Calcium 40 MG 1 tablet Oral ly Once a day Active Cialis 20 MG TAKE 1 TABLET BY BONNIE TH EVERY DAY NEEDED Oral for 30 Active amLODIPine Besylate 5 MG 1 tablet Orally Once a day for 30 day(s) 07/19/2023 Active Pantoprazole Sodium 40 MG TAKE 1 TABLET BY MOUTH TWICE A DAY FOR 30 DAYS Oral for 30 Active Aspir-Low 81 MG 1 tablet Orally Once a day for 30 day(s) 02/10/2022 Active Multivitamin - as directed Orally 02/10/2022 Active IMMUNIZATIONS Vaccine Route Administration Date Status Comme nts Influenza Unknown 07/31/2016 Administered Influenza Unknown 08/19/2021 Administered Influenza Unknown 07/20/2022 Administered Influenza Unknown 09/19/2023 Administered SOCIAL HISTORY Sex Assigned At : Social History Observation Description Sex Assigned At Unknown PROBLEMS Problem Type ICD Code Onset Dates Problem Status W/U Status Risk SNOMED Code Notes Problem Colon cancer screening (Z12.11) Active confirmed 778538066 Problem Encounter for other preprocedural examination (Z01.818) Active confirmed 73010238 Problem Gastroesophageal reflux disease without esophagitis (K21.9) Active confirmed 577758621 Problem Esophageal reflux disease (K21.9) Active confirmed Gastroesopha geal reflux disease (445011494) Problem 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) Active confirmed 882030157 Problem Nausea and vomiting, unspecified vomiting type (R11.2) Active confirmed 08142105 Problem Marcano esophagus (K22.70) Active confirmed Marcano esophag us (865685884) Encounters Encounter Location Date Provider Diagnosis [facility] [address] [place] [address] 12/26/2023 Shady Almodovar Jr [facility] [address] [place] [address] 12/26/2023 Shady Almodovar Jr PLAN OF TREATMENT Pending Test Test Name Order Date HIDA SCAN GB WITH CCK 11/14/2023 NM gastric emptying study 10/03/2023 Future Test Test Name Order Date COLONOSCOPY 08/12/2016 UPPER GI ENDOSCOPY 02/10/2022 UPPER GI ENDOSCOPY 07/18/2023 US ABD 07/18/2023 Insurance Providers Payer Name Payer Address Payer Phone Subscriber Number Group Number Insured Name Patient Relationship to Insured Coverage Start Date Coverage End Date [facility] [employer] CLAIM[employer] [address] [place] [address] [id number] RYAN FITZPATRICK Self - patient is the insured MEDICAL (GENERAL) HISTORY Medical History History ICD Code Cervical spine fracture Hypertension Elevated cholesterol Gastroesophageal reflux dise ase, EGD 05/21, Marcano's esophagus at the EG junction. Antral biopsies negative for H. pylori. EGD 09/22 no Marcano's on biopsy, no evidence of eosinophilic esophagitis. Colonoscopy 11/16, hyperplastic polyp, te n-year followup Surgical History Surgery Date(Month/Year) Cervical fracture repair C5 2009 tonsillectomy knee surgery left broken right wrist Left rotator cuff repair
--- OUTSIDE RECORDS SUMMARY | 2024-12-18 07:10 | XMS_ITS ---
Author Organization [facility] Address [address] [place] [address] Care Team Providers Care Jigger Operator Name Role Phone Dexter (RETIRED) Pineda SIMENTAL Primary Care Provid er Unavailable Shady Almodovar Jr REASON FOR VISIT gastric emptying Encounters Encounter Location Date Provider Diagnosis [facility] [address] [place] [address] 12/26/2023 Shady Almodovar Jr PLAN OF TREATMENT No Information
--- OUTSIDE RECORDS SUMMARY | 2024-12-18 07:10 | XMS_ITS ---
Author Organization Pineda Renteria DO, [facility] Address [address] [place], [place] [phone] Care Team Providers Care Ticket Scheduler Name Role Phone Pineda Renteria Primary Care Provider REASON FOR VISIT 6 month f/u Encounters Encounter Location Date Provider Diagnosis Pineda Renteria DO, FACP [address] [place], [place] [phone] 12/10/2024 Pineda Renteria PLAN OF TREATMENT No Information
--- OUTSIDE RECORDS SUMMARY | 2024-12-18 07:10 | XMS_ITS ---
Author Organization Pineda Renteria DO, [facility] Address [address] [place], [place] [phone] Care Team Providers Care Transit Coach Operator Name Role Phone Pineda Renteria Primary Care Provider REASON FOR VISIT Refills MEDICATIONS Medication SIG (Take, Route, Fr equency, Duration) Notes Start Date End Date Status LORazepam 1 MG 1 tablet Orally Thre e times a day for 15 days 08/15/2024 Active Encounters Encounter Location Date Provider Diagnosis Pineda Renteria DO, FACP [address] [place] [phone] 08/15/2024 Pineda Renteria PLAN OF TREATMENT Medication Medication Name Sig Start Date Stop Date Notes LORazepam 1 MG 1 tablet Orally Thre e times a day for 15 days 08/15/2024
--- OUTSIDE RECORDS SUMMARY | 2024-12-18 07:10 | XMS_ITS ---
Author Organization [facility] Address [address] [place] [address] Care Team Providers Care Making Machine Operator Name Role Phone Dexter (RETIRED) Pineda SIMENTAL Primary Care Provid er Unavailable Shady Almodovar Jr REASON FOR VISIT cancel appt Encounters Encounter Location Date Provider Diagnosis [facility] [address] [place] [address] 12/26/2023 Shady Almodovar Jr PLAN OF TREATMENT No Information
[2024-12-18 10:00] LABS: Hemoglobin 13.7 g/dl (14.0-18.0); Mean Corpuscular HGB Conc 32.6 g/dl (31.0-36.0); Mean Corpuscular Hemoglobin 30.6 pg (27.0-33.0); Mean Corpuscular Volume 93.8 fL (80.0-98.0); Mean Platelet Volume 11.2 fL (9.4-12.4); Platelet Count 240 X10*3/uL (160-400); Red Blood Count 4.48 X10*6/uL (4.60-5.80); Red Cell Distribution Width 13.4 % (11.0-16.0); White Blood Count 6.1 X10*3/uL (4.8-10.8)
[2024-12-18 10:54] LABS: Alanine Aminotransferase 27 U/L (0-40); Albumin Level 4.4 g/dL (3.5-5.0); Alkaline Phosphatase 79 U/L (39-117); Anion Gap 14 (12-20); Aspartate Amino Transferase 32 U/L (5-37); Bilirubin Direct 0.2 mg/dL (0.0-0.5); Bilirubin Total 0.5 mg/dL (0.0-1.0); Blood Urea Nitrogen 12 mg/dL (9-16); Calcium 9.5 mg/dL (8.4-10.2); Carbon Dioxide 24 mmol/L (22-29); Chloride 109 mmol/L (96-108); Cholesterol 161 mg/dL (<200); Estimated Glomerular Filt Rate > 60; Glucose Random 97 mg/dL (60-115); HDL Cholesterol 39 mg/dL (>40); LDL Cholesterol Calculated 95 mg/dL (<100); Potassium 4.5 mmol/L (3.3-5.1); Sodium 142 mmol/L (135-145); Total Protein 7.2 g/dL (6.5-8.0); Triglycerides 139 mg/dL (<150)
[2024-12-18 11:00] LABS: Thyroid Stimulating Hormone 3.08 uIU/mL (0.32-4.0)
[2024-12-18 13:08] LABS: Appearance Urine Clear; Color Urine Yellow; Glucose Urine UA Negative (Negative); Leukocyte Esterase Urine Negative (Negative); Nitrite Urine Negative (Negative); PH 7.5 (5.0-9.0); Urine Blood Negative (Negative); Urine Ketones Negative (Negative); Urine Protein Negative (Neg-Trace)
== END 2024-12-18 07:08 | disposition home or self-care (01) ==
LOC: HO.HMGCLDS 07:07
PROVIDERS: PCP Internal Medicine; Visit Provider Internal Medicine
DX: F10.90 Alcohol use, unspecified, uncomplicated (principal); Z13.29 Encounter for screening for other suspected endocrine disorder; Z13.0 Encounter for screening for diseases of the blood and blood-forming organs and certain disorders involving the immune mechanism
CPT/HCPCS: 36415; 80048; 80061; 80076; 81003; 84443; 85027

== ENCOUNTER 2024-12-26 09:41 | Outpatient (AMB) | payer BC, SELFPAY ==
--- NOTE | 2024-12-26 09:44 | A.OFFPC_ITS ---
Vital Signs 12/26/24 09:53 Height 5 ft 10.5 in Weight 255 lb BMI 36.1 BP 138/42 L Blood Pressure Location Rt brachial Pulse 73 Pulse Source Pulse Oximeter Temp 97.2 F Pulse Oximetry (%) 99 Intake Visit Reasons: 3 week follow up Intake Note: no other issues Allergies felodipine [From Plendil] Adverse Reaction (Unknown, Verified 12/26/24 10:12) Facial flushing and headache lisinopril Adverse Reaction (Unknown, Verified 12/26/24 10:12) Tickle in throat valsartan [From Diovan] Adverse Reaction (Unknown, Verified 12/26/24 10:12) Rise in BUN and Creatinine ENVIRONMENTAL Allergy (Intermediate, Uncoded 12/26/24 10:12) NASAL STUFFINESS Medication List - Last Reconciled 12/26/24 by Luis Peoples MD acamprosate 333 mg PO Q8H amlodipine 5 mg PO DAILY aspirin 81 mg PO DAILY atorvastatin 40 mg PO DAILY multivitamin 1 tab PO DAILY tadalafil (Cialis) 20 mg PO DAILY PRN thiamine HCl (vitamin B1) 100 mg PO DAILY PFSH Medical History Alcohol use disorder Marcano esophagus Cervical spine fracture GERD (gastroesophageal reflux disease) Elevated cholesterol HTN (hypertension) Surgical History History of esophagogastroduodenoscopy (EGD) History of surgery on right wrist Hx of tonsillectomy Hx of cervical spine surgery History of meniscectomy of right knee Hx of repair of left rotator cuff H/O colonoscopy Social History Alcohol intake: current Alcohol intake frequency: 3 or more drinks per day Patient Tobacco Use Status: Never used Tobacco Second Hand Smoke Exposure: No Physical exam (Primary Care) Vital Signs: Last Vital Signs Temp 97.2 F 12/26/24 09:53 Pulse 73 12/26/24 09:53 BP 138/42 L 12/26/24 09:53 Pulse Ox 99 12/26/24 09:53 BMI result Body Mass Index 36.1 Tobacco/Smoking Status: Tobacco use Status Patient Tobacco Use Status Never used Tobacco 12/26/24 09:55 Coding Level of Care Code Est Pt Level 4 (65981) Complex EM visit Add On G2211 Diagnoses Alcohol use disorder F10.90 Assessment & Plan Assessment & Plan (1) Alcohol use disorder: Code(s): F10.90 - Alcohol use, unspecified, uncomplicated Category: Medical Plan: See below Plan History of Present Illness The patient is a 59-year-old male presenting with alcohol use disorder. He has achieved a six-week period of abstinence while being prescribed Acamprosate (Camprol), though he reports not noticing its effects. Despite a previous discussion about starting antidepressant therapy, the patient remains uninterested, preferring to focus on lifestyle measures and behavioral changes, such as increasing physical activity with the coming of warmer weather. He cited strong family support, particularly from his , in maintaining sobriety amidst stressful events. The patient manages occasional cravings by engaging in alternative activities, s uch as driving and audiobooks, and is consciously avoiding social situations involving alcohol consumption. He has a history of severe withdrawal, including delirium tremens, reinforcing the need for continued abstinence. Most recent liver function tests were normal despite prior liver involvement due to alcohol use. Social History - The patient is and has strong spousal support in maintaining sobriety. - Intent to increase physical activity by utilizing home exercise equipment and capitalizing on warmer weather. - Actively avoids social situations that involve alcohol consumption (e.g., [employer] parade). Review of Systems - Neurological: Denies alterations in cognition or consciousness. - Psychological: Denies symptoms of depression or anxiety. - Gastrointestinal: Denies liver complications; prior tests within normal limits. Physical Exam General: Cooperative and healthy appearing Nutritional Appearance: Well nourished Orientation/consciousness: Patient oriented x3 Limitations: No limitations Head: Normal to inspection General: Appearance normal, both eyes and all related structures Neck: Normal visual inspection Chest: Normal palpation of entire chest wall Respiratory: Normal respiratory effort Neurology: Patient oriented x3 Results - Labs: Liver function tests were normal; kidney function tests were normal. Plan The patient is advised to maintain abstinence from alcohol, leveraging medication such as Acamprosate and emphasizing behavioral support including CBT as arranged. Plans to increase physical activity are supported, while ongoing monitoring for depressive symptoms may necessitate future reconsideration of antidepressants. Liver and kidney functions are currently normal, reflecting successful management of alcohol-related impacts. A follow-up is set for six months unless interim issues arise. Patient was informed and verbally consented to the use of an ambient scribe for clinic note documentation during this visit. Discussion Notes I discussed with the patient the importance of continued abstinence from alcohol and the role of Acamprosate as a supportive aid, not a standalone cure. We reviewed behavioral strategies, emphasizing Cognitive Behavioral Therapy and being proactive in avoiding triggers. Risks of not adhering to treatment, the benefits of maintaining sobriety, and the alternative of antidepressants if his mental health status changes were outlined. The patient expressed understanding and commitment to the plan. Regular follow-up and open communication were stressed for sustained success. Patient Instructions - Continue taking Acamprosate (Camprol) as prescribed. - Engage in regular physical activity as planned. - Follow through with CBT referral and begin sessions when available. - Avoid situations where alcohol is present. - Monitor mood and report any changes in depressive symptoms. - Maintain transparency with your regarding your condition and urges. - Contact the office if there are any concerns or a change in your condition.
[2024-12-26 09:53] VITALS: BP 138/42; PULSE 73; TEMP 36.2; O2SAT 99; BMI 36.1
--- OUTSIDE RECORDS SUMMARY | 2024-12-26 11:11 | XMS_ITS | Patient Health Record ---
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) Active confirmed 597187834 Problem Gastroesophageal reflux disease without esophagitis (K21.9) Active confirmed 785143209 Problem Marcano esophagus (K22.70) Active confirmed Marcano esophag us (002902037) Problem Esophageal reflux disease (K21.9) Active confirmed Gastroesopha geal reflux disease (943910975) Problem Nausea and vomiting, unspecified vomiting type (R11.2) Active confirmed 87580648 Encounters Encounter Location Date Provider Diagnosis [facility] [address] [place] [address] 12/26/2023 Shady Almodovar Jr [facility] [address] [place] [address] 12/26/2023 Shady Almodovar Jr PLAN OF TREATMENT [...] Insured Coverage Start Date Coverage End Date [facility] [employer] CLAIM[employer] [address] [place] [address] [id number] RYAN FITZPATRICK Self - patient is [...]
--- OUTSIDE RECORDS SUMMARY | 2024-12-26 11:11 | XMS_ITS ---
Author Organization [facility] Address [address] [place] [address] Care Team Providers Care Pneumatic Jacketer Name Role Phone Dexter (RETIRED) Pineda SIMENTAL Primary Care Provid er Unavailable Shady Almodovar Jr REASON FOR VISIT x-ray results Encounters Encounter Location Date Provider Diagnosis [facility] [address] [place] [address] 12/14/2023 Shady Almodovar Jr PLAN OF TREATMENT No Information
--- OUTSIDE RECORDS SUMMARY | 2024-12-26 11:11 | XMS_ITS ---
Author Organization Pineda Renteria DO, [facility] Address [address] [place], [place] [id number] Care Team Providers Care Machine Brush Maker Name Role Phone Pineda Renteria Primary Care Provider REASON FOR VISIT Message MEDICATIONS Medication SIG (Take, Route, Fr equency, Duration) Notes Start Date End Date Status LORazepam 1 MG 1 tablet Orally Thre e times a day for 15 days 06/29/2024 Active Thiamine HCl 100 MG 1 tablet Orally Once a day for 90 days 06/29/2024 Active Encounters Encounter Location Date Provider Diagnosis Pineda Renteria DO, FACP [address] [place], [place] [phone] 06/29/2024 Pineda Renteria PLAN OF TREATMENT Medication Medication Name Sig Start Date Stop Date Notes LORazepam 1 MG 1 tablet Orally Thre e times a day for 15 days 06/29/2024 Thiamine HCl 100 MG 1 tablet Orally Once a day for 90 days 06/29/2024
--- OUTSIDE RECORDS SUMMARY | 2024-12-26 11:12 | XMS_ITS ---
Author Organization [facility] Address [address] [place] [address] Care Team Providers Care Mattress Specialist Name Role Phone Dexter (RETIRED) Pineda SIMENTAL Primary Care Provid er Unavailable Shady Almodovar Jr REASON FOR VISIT gastric emptying Encounters Encounter Location Date Provider Diagnosis [facility] [address] [place] [address] 12/26/2023 Shady Almodovar Jr PLAN OF TREATMENT No Information
--- OUTSIDE RECORDS SUMMARY | 2024-12-26 11:12 | XMS_ITS ---
Author Organization [facility] Address [address] [place] [address] Care Team Providers Care Jewelry Bench Molder Name Role Phone Dexter (RETIRED) Pineda SIMENTAL Primary Care Provid er Unavailable Shady Almodovar Jr REASON FOR VISIT cancel appt Encounters Encounter Location Date Provider Diagnosis [facility] [address] [place] [address] 12/26/2023 Shady Almodovar Jr PLAN OF TREATMENT No Information
--- OUTSIDE RECORDS SUMMARY | 2024-12-26 11:12 | XMS_ITS ---
Author Organization Pineda Renteria DO, [facility] Address [address] [place], [place] [phone] Care Team Providers Care Commercial Account Executive Name Role Phone Pineda Renteria Primary Care Provider REASON FOR VISIT 6 month f/u Encounters Encounter Location Date Provider Diagnosis Pineda Renteria DO, FACP [address] [place], [place] [phone] 12/10/2024 Pineda Renteria PLAN OF TREATMENT No Information
--- OUTSIDE RECORDS SUMMARY | 2024-12-26 11:12 | XMS_ITS ---
Author Organization Pineda Renteria DO, [facility] Address [address] [place], [place] [id number] Care Team Providers Care Director Adult Name Role Phone Pineda Renteria Primary Care Provider REASON FOR VISIT Refills MEDICATIONS Medication SIG (Take, Route, Fr equency, Duration) Notes Start Date End Date Status LORazepam 1 MG 1 tablet Orally Thre e times a day for 15 days 08/15/2024 Active Encounters Encounter Location Date Provider Diagnosis Pineda Renteria DO, FACP [address] [place] [phone] 08/15/2024 Pineda Renteria PLAN OF TREATMENT Medication Medication Name Sig Start Date Stop Date Notes LORazepam 1 MG 1 tablet Orally Thre e times a day for 15 days 08/15/2024
== END 2024-12-26 10:07 | disposition home or self-care (01) ==
LOC: HO.HMCSH 09:41
PROVIDERS: PCP Internal Medicine; Visit Provider Internal Medicine
DX: F10.90 Alcohol use, unspecified, uncomplicated (principal)

== ENCOUNTER → 2024-12-26 09:41 | Outpatient (BNVA) | payer BC, SELFPAY | PROVIDERS: PCP Internal Medicine; Visit Provider Internal Medicine ==

== ENCOUNTER 2025-02-05 10:25 | Outpatient (AMB) | payer BC, SELFPAY ==
[2025-02-05 10:28] VITALS: BP 138/70; PULSE 65; RESP 14; TEMP 36.5; O2SAT 96; BMI 36.5
--- NOTE | 2025-02-05 10:28 | A.OFFPC_ITS ---
Vital Signs 02/05/25 10:28 Height 5 ft 10.5 in Weight 258 lb BMI 36.5 BP 138/70 Respiration 14 Pulse 65 Pulse Source Pulse Oximeter Temp 97.7 F Temp Source Temporal Artery Scan Pulse Oximetry (%) 96 Oxygen Delivery Method Room Air Intake Visit Reasons: sobriety Kennel Technician Required: No Accompanied by: Self / Same As Patient Allergies felodipine [From Plendil] Adverse Reaction (Unknown, Verified 02/05/25 10:28) Facial flushing and headache lisinopril Adverse Reaction (Unknown, Verified 02/05/25 10:28) Tickle in throat valsartan [From Diovan] Adverse Reaction (Unknown, Verified 02/05/25 10:28) Rise in BUN and Creatinine ENVIRONMENTAL Allergy (Intermediate, Uncoded 02/05/25 10:28) NASAL STUFFINESS Tobacco use date assessed: 02/05/25 Dental Screening Dental Screen Date: 02/05/25 Did you have a dental visit in the last 12 months?: Yes Did you have a dental problem in the last 6 months where you did not have access to dental care?: No Was dental information given to patient?: Patient has dentist [facility] Medical History Alcohol use disorder Marcano esophagus Cervical spine fracture GERD (gastroesophageal reflux disease) Elevated cholesterol HTN (hypertension) Surgical History History of esophagogastroduodenoscopy (EGD) History of surgery on right wrist Hx of tonsillectomy Hx of cervical spine surgery History of meniscectomy of right knee Hx of repair of left rotator cuff H/O colonoscopy Family History (Updated 02/05/25 @ 10:29 by ENA Coe) Father No problems noted. Mother No problems noted. Social History (Updated 02/05/25 @ 10:39 by ENA Coe) Housing: House Alcohol intake: current Alcohol intake frequency: does not drink Patient Tobacco Use Status: Never used Tobacco Second Hand Smoke Exposure: No service: No Current occupational status: employed Cognitive needs: No Hearing needs: No Vision needs: Yes (reading glasses) Questionnaire PHQ-9 Over the last 2 weeks, how often have you been bothered by any of the following problems? 1. Little interest or pleasure in doing things: not at all 2. Feeling down, depressed, or hopeless: not at all 3. Trouble falling or staying asleep, or sleeping too much: not at all 4. Feeling tired or having little energy: not at all 5. Poor appetite or overeating: not at all 6. Feeling bad about yourself - or that you are a failure or have let yourself or your family down: not at all 7. Trouble concentrating on things, such as reading the newspaper or watching television: not at all 8. Moving or speaking so slowly that other people could have noticed. Or the opposite - being so fidgety or restless that you have been moving around a lot more than usual: not at all 9. Thoughts that you would be better off or of hurting yourself in some way: not at all Total score: 0 Source: Developed by Drs. Pineda Pennington, Ely Miles, Edi Gallardo and colleagues, with an educational ronni from [employer]. Thrive Questionnaire Date Thrive assessed: 02/05/25 I am a: Patient What is your living situation today?: I have a steady place to live Within the past 12 months, did the food you bought not last and you didn't have the money to get more?: Never true Within the past 12 months, did you worry whether your food would run out before you got money to buy more?: Never true Do you have trouble paying for medicines?: No Do you have trouble getting transportation to medical appointments?: No Do you have trouble paying your heating and electricity bill?: No Do you have trouble taking care of your child, family member or friend?: No Do you have trouble with day-to-day activities such as bathing, preparing meals, shopping, managing finances, etc.?: No Are you currently unemployed and looking for a job?: No Are you interested in more education?: No Please select the resources that you would like help with: None THRIVE Score: 0 AUDIT C Alcohol Use Questionnaire (AUDIT-C) 1. How often do you have a drink containing alcohol?: Never 3. How often do you have six or more drinks on one occasion?: Never Total Score: 0 BENJAMIN-7 AMB Questionnaire BENJAMIN-7 Date BENJAMIN - 7 assessed: 02/05/25 Feeling nervous, anxious, or on edge: 0 = Not at all Not being able to stop or control worryin = Not at all Worrying too much about different things: 0 = Not at all Trouble relaxin = Not at all Being so restless that it is hard to sit still: 0 = Not at all Becoming easily annoyed or irritable: 0 = Not at all Feeling afraid as if something awful might happen: 0 = Not at all Total BENJAMIN-7 score (0-4 normal; 5-9 mild; 10-14 moderate; 15-21 severe): 0 Source: Developed by Drs. Pineda Pennington, Ely Miles, Edi Gallardo and colleagues, with an educational ronni from [employer]. Physical exam (Primary Care) Vital Signs: Last Vital Signs Temp 97.7 F 02/05/25 10:28 Pulse 65 02/05/25 10:28 Resp 14 02/05/25 10:28 BP 138/70 02/05/25 10:28 Pulse Ox 96 02/05/25 10:28 Oxygen Delivery Method Room Air 02/05/25 10:28 BMI result Body Mass Index 36.5 Tobacco/Smoking Status: Tobacco use Status Tobacco use date assessed 02/05/25 02/05/25 10:32 Patient Tobacco Use Status Never used Tobacco 02/05/25 10:39 PHQ-9: PHQ-9 Score PHQ-9: Total score 0 02/05/25 10:32 Thrive Assessment: Date of Thrive Assessment Date Thrive assessed 02/05/25 02/05/25 10:32 Coding Level of Care Code Est Pt Level 4 (37175) Complex EM visit Add On G2211 Diagnoses Alcohol use disorder F10.90 Assessment & Plan Assessment & Plan (1) Alcohol use disorder: Code(s): F10.90 - Alcohol use, unspecified, uncomplicated Category: Medical Plan: History of Present Illness The patient is a 59-year-old male presenting with concerns related to alcohol use. He is currently managing an alcohol use disorder, with a history of sobriety being interrupted by recurring relapses approximately every eight weeks. Recent life stresses, particularly the passing of his father, have compounded his condition, resulting in a week-long binge episode marked by blackouts and emotional distress. The patient has been prescribed Acamprosate, which he takes as needed, though he is unsure of its effectiveness. He identifies alcohol intolerance as a recent development, noting that consumption now induces emesis, reinforcing his decision to abstain. His efforts to remain sober are targeted and deliberate, guided by a goal to abstain long-term. He seeks specialized therapy for additional support in maintaining sobriety and has noted previous unsuccessful attempts to secure this therapy. Social History - Substance Use: Reports a history of alcohol use disorder, with periods of sobriety spanning up to eight weeks, interrupted by brief instances of binge drinking. - Family Status: Discusses emotional impact and management of alcohol use with his , who is supportive of his sobriety efforts. Review of Systems - Neurological: Reports episodes of blackouts associated with alcohol consumption. - Gastrointestinal: Reports episodes of vomiting following alcohol consumption. Physical Exam General: Cooperative and healthy appearing Nutritional Appearance: Well nourished Orientation/consciousness: Patient oriented x3 Limitations: No limitations Head: Normal to inspection General: Appearance normal, both eyes and all related structures Neck: Normal visual inspection Chest: Normal palpation of entire chest wall Respiratory: Normal respiratory effort Neurology: Patient oriented x3 Results Plan The plan involves reinforcing the patient's adherence to Acamprosate to manage cravings associated with alcohol use disorder. Though the patient questions its effectiveness, continued use as prescribed is recommended. We reviewed the potential alcohol intolerance and its role in his decision to abstain completely. The patient's pursuit of specialized therapy for alcohol use disorder is crucial, and efforts will be made to expedite this process, given prior difficulties in securing it. Continued focus on maintaining sobriety and managing high-risk relapse periods is essential. Patient was informed and verbally consented to the use of an ambient scribe for clinic note documentation during this visit. Discussion Notes I explained the likelihood and signs of alcohol use disorder and potential alcohol intolerance to Mr. Coulter. We discussed the purpose and regimen of Acamprosate therapy, emphasizing its role in minimizing cravings. We agreed on the necessity of specialized therapy for further support, and I confirmed multiple past attempts to initiate this service. Discussed strategies to help manage cravings and pivotal periods, particularly around eight weeks of sobriety, and he committed to addressing these with appropriate professional support. We discussed potential complications of continued alcohol use versus the benefits of sustained sobriety, and he agreed to pursue therapeutic support. Given previous miscommunications about therapy, I offered to facilitate a direct call. Patient Instructions - Continue taking Acamprosate as prescribed, two to three times daily. - Pursue specialized therapy for alcohol use disorder; follow up with referral process. - Abstain from alcohol consumption to prevent intolerance reactions such as vomiting. - Focus on managing triggers and high-risk periods to maintain sobriety. - Reach out for assistance if experiencing strong cravings or considering relapse. Plan Care discussed with Latonya Leon and Meggan Knowles. Suggested IOP and patient was asked to contact [facility] in [place].
--- OUTSIDE RECORDS SUMMARY | 2025-02-05 12:23 | XMS_ITS ---
Author Organization [facility] Address [address] [place] [phone] Care Team Providers Care Family Therapist Name Role Phone Dexter (RETIRED) Pineda SIMENTAL Primary Care Provid er Unavailable Shady Almodovar Jr REASON FOR VISIT gastric emptying Encounters Encounter Location Date Provider Diagnosis [facility] [address] [place] [phone] 12/26/2023 Shady Almodovar Jr Plan Of Treatment No Information Progress Notes * RYAN FITZPATRICKDOB:1964 (59 yo M)Acc No.[id number]:12/26/2023 Progress Notes Patient:?FITZPATRICK RYAN Martin Provider:?Shady Almodovar MD :1965???Age:58 Y???Sex:Male Willis e:12/26/2023 Address:[address] [place], [place] [address]Kaitlyn Falcon [facility] Pcp:Pineda Rneteria (RETIRE D), Subjective: * Chief Complaints: * ???1. Gastric emptying. * Medical History:? Objective: * Vitals:? Assessment: Plan: * Treatment: * * The named appointment provid er may or may not be the originator of this progress note, and it is not deemed complete until electronically signed by the appointment provider. Sign off status: Pending * Provider:?Shady Almodovar MD Date:?0 12/26/2023 Generated for Printi ng/Fakathig/eTransmitting on:?02/05/2025 12:23 PM EDT
--- OUTSIDE RECORDS SUMMARY | 2025-02-05 12:23 | XMS_ITS ---
Author Organization [facility] Address [address] [place] [phone] Care Team Providers Care Electronic Transaction Implementer Name Role Phone Dexter (RETIRED) Pineda SIMENTAL Primary Care Provid er Unavailable Shady Almodovar Jr REASON FOR VISIT x-ray results Encounters Encounter Location Date Provider Diagnosis [facility] [address] [place] [phone] 12/14/2023 Shady Almodovar Jr Plan Of Treatment No Information Progress Notes * RYAN FITZPATRICKDOB:1964 (58 yo M)Acc No.[id number]:12/14/2023 Patient:?RYAN FITZPATRICK :1965???Age:58 Y???Sex:Male Address:[address] [place] [address] Kaitlyn RUBIN [place], [address] * true * Date:? Generated for Printi abdoulaye/Queenie/eTransmitting on:?02/05/2025 12:22 PM EDT
--- OUTSIDE RECORDS SUMMARY | 2025-02-05 12:23 | XMS_ITS | Patient Health Record ---
Author Organization [facility] Address [address] [place] [address] Care Team Providers Care Care Provider Name Role Phone Dexter (RETIRED) Pineda SIMENTAL Primary Care Provid er Unavailable Shady Almodovar Jr Unavailable [phone] Allergies No Known Allergies Reason For Referral No Information Medications Medication SIG (Take, Route, Frequency, Duration) Notes [...] Multivitamin - as directed Orally 02/10/2022 Active Immunizations Vaccine Route Administration Date Status Comme nts Influenza Unknown 07/31/2016 Administered Influenza Unknown 08/19/2021 Administered Influenza Unknown 07/20/2022 Administered Influenza Unknown 09/19/2023 Administered Problems Problem Type SNOMED Code ICD Code Onset Dates Problem Status W/U Status Risk Notes Problem 271259189 Colon cancer screening (Z12.11) Active confirmed Problem 02402932 Encounter for other preprocedural examination (Z01.818) Active confirmed Problem 492532193 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) Active confirmed Problem 513739450 Gastroesophageal reflux disease without esophagitis (K21.9) Active confirmed Problem Marcano esophagus (443180037) Marcano esophagus (K22.70) Active confirmed Problem Gastroesophageal reflux disease (348130506) Esophageal reflux disease (K21.9) Active confirmed Problem 30365486 Nausea and vomiting, unspecified vomiting type (R11.2) Active confirmed Plan Of Treatment Pending Test Test Name Order Date HIDA SCAN GB WITH CCK 11/14/2023 NM gastric emptying study 10/03/2023 Future Test Test Name Order Date COLONOSCOPY 08/12/2016 UPPER GI ENDOSCOPY 02/10/2022 UPPER GI ENDOSCOPY 07/18/2023 US ABD 07/18/2023 Insurance Providers Payer Name Payer Address Payer Phone Subscriber Number Group Number Insured Name Patient Relationship to Insured Coverage Start Date Coverage End Date [facility] [employer] PROF[employer]AL CLAIMS [address] [place] [address] [id number] RYAN FITZPATRICK Self - patient is the insured Medical (General) History Medical History History ICD Code Cervical spine [...]
--- OUTSIDE RECORDS SUMMARY | 2025-02-05 12:23 | XMS_ITS ---
Author Organization [facility] Address [address] [place] [phone] Care Team Providers Care Roll Capper Name Role Phone Dexter (RETIRED) Pineda SIMENTAL Primary Care Provid er Unavailable Shady Almodovar Jr REASON FOR VISIT cancel appt Encounters Encounter Location Date Provider Diagnosis [facility] [address] [place] [phone] 12/26/2023 Shady Almodovar Jr Plan Of Treatment No Information Progress Notes * RYAN FITZPATRICKDOB:1964 (58 yo M)Acc No.[id number]:12/26/2023 Patient:?RYAN FITZPATRICK :1965???Age:58 Y???Sex:Male Address:[address] [place] [address] Kaitlyn R[place], [address] * true * Date:? Generated for Printi abdoulaye/Queenie/eTransmitting on:?02/05/2025 12:23 PM EDT
== END 2025-02-05 11:46 | disposition home or self-care (01) ==
LOC: HO.HMCSH 10:25
PROVIDERS: PCP Internal Medicine; Visit Provider Internal Medicine
DX: F10.90 Alcohol use, unspecified, uncomplicated (principal)

== ENCOUNTER → 2025-02-05 10:25 | Outpatient (BNVA) | payer BC, SELFPAY | PROVIDERS: PCP Internal Medicine; Visit Provider Internal Medicine | DX: Z13.89 Encounter for screening for other disorder (principal) ==

== ENCOUNTER 2025-05-14 11:40 | Outpatient (AMB) | payer BC, SELFPAY ==
--- NOTE | 2025-05-14 11:37 | A.OFFPC_ITS ---
Intake Visit Reasons: per -discuss medication/injections Allergies felodipine (From Plendil) Adverse Reaction (Unknown, Verified 05/14/25 11:37) Facial flushing and headache lisinopril Adverse Reaction (Unknown, Verified 05/14/25 11:37) Tickle in throat valsartan (From Diovan) Adverse Reaction (Unknown, Verified 05/14/25 11:37) Rise in BUN and Creatinine ENVIRONMENTAL Allergy (Intermediate, Uncoded 05/14/25 11:37) NASAL STUFFINESS Tobacco use date assessed: 02/05/25 Dental Screening Dental Screen Date: 02/05/25 [facility] Medical History Alcohol use disorder Marcano esophagus Cervical spine fracture GERD (gastroesophageal reflux disease) Elevated cholesterol HTN (hypertension) Surgical History History of esophagogastroduodenoscopy (EGD) History of surgery on right wrist Hx of tonsillectomy Hx of cervical spine surgery History of meniscectomy of right knee Hx of repair of left rotator cuff H/O colonoscopy (~11/10/16) Family History Father No problems noted. Mother No problems noted. Social History Housing: House Alcohol intake: current Alcohol intake frequency: does not drink Patient Tobacco Use Status: Never used Tobacco Second Hand Smoke Exposure: No service: No Current occupational status: employed Cognitive needs: No Hearing needs: No Vision needs: Yes (reading glasses) Questionnaire PHQ-9 Over the last 2 weeks, how often have you been bothered by any of the following problems? 1. Little interest or pleasure in doing things: not at all 2. Feeling down, depressed, or hopeless: not at all 3. Trouble falling or staying asleep, or sleeping too much: not at all 4. Feeling tired or having little energy: not at all 5. Poor appetite or overeating: not at all 6. Feeling bad about yourself - or that you are a failure or have let yourself or your family down: not at all 7. Trouble concentrating on things, such as reading the newspaper or watching television: not at all 8. Moving or speaking so slowly that other people could have noticed. Or the opposite - being so fidgety or restless that you have been moving around a lot more than usual: not at all 9. Thoughts that you would be better off or of hurting yourself in some way: not at all Total score: 0 Source: Developed by Drs. Pineda Pennington, Ely Miles, Edi Gallardo and colleagues, with an educational ronni from [employer] Thrive Questionnaire Date Thrive assessed: 02/05/25 I am a: Patient What is your living situation today?: I have a steady place to live Within the past 12 months, did the food you bought not last and you didn't have the money to get more?: Never true Within the past 12 months, did you worry whether your food would run out before you got money to buy more?: Never true Do you have trouble paying for medicines?: No Do you have trouble getting transportation to medical appointments?: No Do you have trouble paying your heating and electricity bill?: No Do you have trouble taking care of your child, family member or friend?: No Do you have trouble with day-to-day activities such as bathing, preparing meals, shopping, managing finances, etc.?: No Are you currently unemployed and looking for a job?: No Are you interested in more education?: No Please select the resources that you would like help with: None THRIVE Score: 0 AUDIT C Alcohol Use Questionnaire (AUDIT-C) 1. How often do you have a drink containing alcohol?: Never 3. How often do you have six or more drinks on one occasion?: Never Total Score: 0 BENJAMIN-7 AMB Questionnaire BENJAMIN-7 Date BENJAMIN - 7 assessed: 02/05/25 Feeling nervous, anxious, or on edge: 0 = Not at all Not being able to stop or control worryin = Not at all Worrying too much about different things: 0 = Not at all Trouble relaxin = Not at all Being so restless that it is hard to sit still: 0 = Not at all Becoming easily annoyed or irritable: 0 = Not at all Feeling afraid as if something awful might happen: 0 = Not at all Total BENJAMIN-7 score (0-4 normal; 5-9 mild; 10-14 moderate; 15-21 severe): 0 Source: Developed by Drs. Pineda Pennington, Ely Miles, Edi Gallardo and colleagues, with an educational ronni from [employer] Physical exam (Primary Care) Tobacco/Smoking Status: Tobacco use Status Tobacco use date assessed 02/05/25 05/14/25 11:39 Patient Tobacco Use Status Never used Tobacco 05/14/25 11:39 PHQ-9: PHQ-9 Score PHQ-9: Total score 0 05/14/25 11:39 Thrive Assessment: Date of Thrive Assessment Date Thrive assessed 02/05/25 05/14/25 11:39 Coding Level of Care Code Admin Sign Off/No Billing Diagnoses Alcohol use disorder F10.90 Assessment & Plan Assessment & Plan (1) Alcohol use disorder: Code(s): F10.90 - Alcohol use, unspecified, uncomplicated Category: Medical Plan: Not a billable visit. Patient made an appt to thank me for helping him out with alcohol withdrawl.
== END 2025-05-14 13:05 | disposition home or self-care (01) ==
LOC: HO.HMCSH 11:40
PROVIDERS: PCP Internal Medicine; Visit Provider Internal Medicine
DX: F10.90 Alcohol use, unspecified, uncomplicated (principal)

== ENCOUNTER 2025-06-25 08:56 | Outpatient (AMB) | payer BC, SELFPAY ==
[2025-06-25 08:57] VITALS: BP 135/81; PULSE 70; RESP 14; TEMP 36.7; O2SAT 97; BMI 37.6
--- NOTE | 2025-06-25 08:57 | MHC.PC.OV ---
Vital Signs 06/25/25 08:57 Height 5 ft 10.5 in Weight 266 lb BMI 37.6 BP 135/81 Respiration 14 Pulse 70 Pulse Source Pulse Oximeter Temp 98.0 F Temp Source Temporal Artery Scan Pulse Oximetry (%) 97 Oxygen Delivery Method Room Air Intake Visit Reasons: 6 month f/u Registered Nurse Cardiac Required: No Accompanied by: Self / Same As Patient Allergies felodipine (From Plendil) Adverse Reaction (Unknown, Verified 06/25/25 08:58) Facial flushing and headache lisinopril Adverse Reaction (Unknown, Verified 06/25/25 08:58) Tickle in throat valsartan (From Diovan) Adverse Reaction (Unknown, Verified 06/25/25 08:58) Rise in BUN and Creatinine ENVIRONMENTAL Allergy (Intermediate, Uncoded 06/25/25 08:58) NASAL STUFFINESS Tobacco use date assessed: 06/25/25 Dental Screening Dental Screen Date: 02/05/25 [facility] Medical History Alcohol use disorder Marcano esophagus Cervical spine fracture GERD (gastroesophageal reflux disease) Elevated cholesterol HTN (hypertension) Surgical History History of esophagogastroduodenoscopy (EGD) History of surgery on right wrist Hx of tonsillectomy Hx of cervical spine surgery History of meniscectomy of right knee Hx of repair of left rotator cuff H/O colonoscopy (~11/10/16) Family History Father No problems noted. Mother No problems noted. Social History Housing: House Alcohol intake: current Alcohol intake frequency: does not drink Patient Tobacco Use Status: Never used Tobacco Second Hand Smoke Exposure: No service: No Current occupational status: employed Cognitive needs: No Hearing needs: No Vision needs: Yes (reading glasses) Questionnaire PHQ-9 Over the last 2 weeks, how often have you been bothered by any of the following problems? 1. Little interest or pleasure in doing things: not at all 2. Feeling down, depressed, or hopeless: not at all 3. Trouble falling or staying asleep, or sleeping too much: not at all 4. Feeling tired or having little energy: not at all 5. Poor appetite or overeating: not at all 6. Feeling bad about yourself - or that you are a failure or have let yourself or your family down: not at all 7. Trouble concentrating on things, such as reading the newspaper or watching television: not at all 8. Moving or speaking so slowly that other people could have noticed. Or the opposite - being so fidgety or restless that you have been moving around a lot more than usual: not at all 9. Thoughts that you would be better off or of hurting yourself in some way: not at all Total score: 0 Source: Developed by Drs. Pineda Pennington, Ely Miles, Edi Gallardo and colleagues, with an educational ronni from [employer]. Thrive Questionnaire Date Thrive assessed: 05/14/25 I am a: Patient What is your living situation today?: I have a steady place to live Within the past 12 months, did the food you bought not last and you didn't have the money to get more?: Never true Within the past 12 months, did you worry whether your food would run out before you got money to buy more?: Never true Do you have trouble paying for medicines?: No Do you have trouble getting transportation to medical appointments?: No Do you have trouble paying your heating and electricity bill?: No Do you have trouble taking care of your child, family member or friend?: No Do you have trouble with day-to-day activities such as bathing, preparing meals, shopping, managing finances, etc.?: No Are you currently unemployed and looking for a job?: No Are you interested in more education?: No Please select the resources that you would like help with: None THRIVE Score: 0 AUDIT C Alcohol Use Questionnaire (AUDIT-C) 1. How often do you have a drink containing alcohol?: Never 3. How often do you have six or more drinks on one occasion?: Never Total Score: 0 BENJAMIN-7 AMB Questionnaire BENJAMIN-7 Date BENJAMIN - 7 assessed: 05/14/25 Feeling nervous, anxious, or on edge: 0 = Not at all Not being able to stop or control worryin = Not at all Worrying too much about different things: 0 = Not at all Trouble relaxin = Not at all Being so restless that it is hard to sit still: 0 = Not at all Becoming easily annoyed or irritable: 0 = Not at all Feeling afraid as if something awful might happen: 0 = Not at all Total BENJAMIN-7 score (0-4 normal; 5-9 mild; 10-14 moderate; 15-21 severe): 0 Source: Developed by Drs. Pineda Pennington, Ely Miles, Edi Gallardo and colleagues, with an educational ronni from [employer]. Physical exam (Primary Care) Vital Signs: Last Vital Signs Temp 98.0 F 06/25/25 08:57 Pulse 70 06/25/25 08:57 Resp 14 06/25/25 08:57 BP 135/81 06/25/25 08:57 Pulse Ox 97 06/25/25 08:57 Oxygen Delivery Method Room Air 06/25/25 08:57 BMI result Body Mass Index 37.6 Tobacco/Smoking Status: Tobacco use Status Tobacco use date assessed 06/25/25 06/25/25 09:07 Patient Tobacco Use Status Never used Tobacco 06/25/25 09:07 PHQ-9: PHQ-9 Score PHQ-9: Total score 0 06/25/25 09:07 Thrive Assessment: Date of Thrive Assessment Date Thrive assessed 05/14/25 06/25/25 09:07 Coding Level of Care Code Est Pt Level 4 (45872) Complex EM visit Add On G2211 Diagnoses Alcohol use disorder F10.90 Assessment & Plan Assessment & Plan (1) Alcohol use disorder: Code(s): F10.90 - Alcohol use, unspecified, uncomplicated Category: Medical Plan: History of Present Illness - The patient is a 60-year-old male presenting with alcohol use disorder. - The patient has been sober for 90 days and has attended [facility] for rehabilitation, which he found empowering and educational. - He initially went to detox at [facility] and then continued treatment at [facility], participating in a full-time program for two to three weeks. - The patient has been on naltrexone and Vivitrol for management of alcohol use disorder, with plans to switch to oral naltrexone for cost reasons. - He attends Alcoholics Anonymous meetings weekly and has a supportive relationship with his , who also participated in rehabilitation. - The patient is considering switching to oral naltrexone to manage costs and has been in contact with a therapist for additional support. - Preventative care measures discussed include vaccinations for flu and shingles. 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 - He has a supportive relationship with his , who participated in rehabilitation with him. - The patient attends Alcoholics Anonymous meetings weekly and is involved in a supportive community. Review of Systems - General: Reports feeling good overall, denies any current health concerns. Physical Exam General: Cooperative and healthy appearing Nutritional Appearance: Well nourished Orientation/consciousness: Patient oriented x3 Limitations: No limitations Head: Normal to inspection General: Appearance normal, both eyes and all related structures Neck: Normal visual inspection Chest: Normal palpation of entire chest wall Respiratory: Normal respiratory effort Neurology: Patient oriented x3 Results Plan 1. Alcohol Use Disorder - Continue Vivitrol injections with plans to switch to oral naltrexone for cost management. - Maintain attendance at Alcoholics Anonymous meetings and contact with therapist for support. 2. Preventative Care: Vaccinations - Receive flu shot and consider shingles vaccination at [facility]. Discussion Notes During the visit, we discussed the patient's ongoing management of alcohol use disorder, including the use of Vivitrol and the potential switch to oral naltrexone for cost reasons. We also reviewed the importance of continued participation in Alcoholics Anonymous and maintaining contact with a therapist for support. Preventative care measures, including vaccinations for flu and shingles, were recommended. Patient Instructions - Continue Vivitrol injections and plan to switch to oral naltrexone as discussed. - Attend Alcoholics Anonymous meetings regularly and maintain contact with your therapist. - Get a flu shot and consider shingles vaccination at [facility].
--- OUTSIDE RECORDS SUMMARY | 2025-06-25 09:14 | XMS_ITS | Clinical Summary ---
Author Organization [facility] Address [address] [place] [phone] Phone Care Team Providers Care Wet Inspector Optical Glass Name Role Phone Unavailable Primary Care Provider Unavailabl e Social History Tobacco Use Types Packs/Day Years Used Date Smoking Tobacco: Never Assessed Sex and Gender Information Value Date Recorded Sex Assigned at Not on file Legal Sex Male 1:00 PM EDT Gender Identity Not on file Sexual Orientation Not on file Plan of Treatment Not on file Medical Devices Not on file Additional Source Comments The information contained in this document represents components of the legal health record. It is not the complete legal health record.[facility]
--- OUTSIDE RECORDS SUMMARY | 2025-06-25 09:14 | XMS_ITS | Clinical Summary ---
Author Organization [facility] Address [address] [place] [address] Care Team Providers Care Portfolio Mgr Name Role Phone Not In System, Provider Primary Care Provider Un available Allergies No known active allergies Medications atorvastatin (LIPITOR) 10 MG tablet 10 mg once daily. 01/30/2018 Active multivitamin (THERAGRAN) tablet Take 1 tablet by mouth once daily. Active Family History Medical History Relation Name Comments Gait disorder Maternal Grandfather Migraines Maternal Grandfather Stroke Maternal Grandfather Genetic disorder Mother Relation Name Status Comments Maternal Grandfather Mother Social History Tobacco Use Types Packs/Day Years Used Date Smoking Tobacco: Never Smokeless Tobacco: Never Alcohol Use Standard Drinks/Week Comments No 0 (1 standard drink = 0.6 oz pur e alcohol) former heavy user Sex and Gender Information Value Date Recorded Sex Assigned at Not on file Legal Sex Male 12:49 PM EDT Gender Identity Not on file Sexual Orientation Not on file Last Filed Vital Signs Vital Sign Reading Time Taken Comments Blood Pressure 167/94 02/28/2018 12:59 PM EDT Pulse 58 02/28/2018 12:59 PM EDT Temperature 36.7 C (98.1 F) 02/28/2018 12:59 PM EDT Respiratory Rate - - Oxygen Saturation - - Inhaled Oxygen Concentration - - Weight 103.4 kg (228 lb) 02/28/2018 12:59 PM EDT Height 180.3 cm (5' 11 ) 02/28/2018 12:59 PM EDT Body Mass Index 31.8 02/28/2018 12:59 PM EDT Plan of Treatment Not on file Insurance [facility] (O) [facility] Address: [address] [place] [address] [place] [address] Care Teams Portfolio Mgr Relationship Specialty Start Date End Date Not In System, Provider CRISTINA [facility] [id number] PCP - General 01/16/18
--- OUTSIDE RECORDS SUMMARY | 2025-06-25 09:14 | XMS_ITS | Encounter Summary ---
Author Organization [facility] Address [address] [place] [phone] Phone Care Team Providers Care Packing Room Worker Name Role Phone Unavailable Primary Care Provider Unavailabl e Encounter Details Date Type Department Care Team (Latest Contact Info) Description 04/20/2023 Transcribe Orders Virtual Department [address] [place] [address] Pineda Renteria, DO [address] [place] [address] Dyspnea on exertion; Primary hypertension Social History Tobacco Use Types Packs/Day Years Used Date Smoking Tobacco: Never Assessed Sex and Gender Information Value Date Recorded Sex Assigned at Not on file Legal Sex Male 1:00 PM EDT Gender Identity Not on file Sexual Orientation Not on file documented as of this encounter Plan of Treatment Not on file documented as of this encounter Visit Diagnoses Diagnosis Dyspnea on exertion Other dyspnea and respiratory abnormality Primary hypertension Unspecified essential hypertension documented in this encounter Additional Source Comments The information contained in this document represents components of the legal health record. It is not the complete legal health record.[facility]
== END 2025-06-25 09:49 | disposition home or self-care (01) ==
LOC: HO.HMCSH 08:56
PROVIDERS: PCP Internal Medicine; Visit Provider Internal Medicine
DX: F10.90 Alcohol use, unspecified, uncomplicated (principal)

== ENCOUNTER 2025-10-28 08:21 | Outpatient (REF) | payer BC, SELFPAY ==
--- OUTSIDE RECORDS SUMMARY | 2025-10-28 08:24 | XMS_ITS | Clinical Summary ---
Author Organization [facility] Address [address] [facility] [address] [place] [phone] Phone Care Team Providers Care Engineering Aide Name Role Phone Unavailable Primary Care Provider [...]
--- OUTSIDE RECORDS SUMMARY | 2025-10-28 08:24 | XMS_ITS | Clinical Summary ---
Author Organization [facility] Address [address] [place] [address] Care Team Providers Care Beer Cooler Name Role Phone Not In System, Provider [...] Plan of Treatment Not on file Insurance [facility] ([place]) [place] [id number] Care Teams Beer Cooler Relationship Specialty Start Date End Date Not In System, Provider CRISTINA [facility] [id number] PCP - General 01/16/18
--- OUTSIDE RECORDS SUMMARY | 2025-10-28 08:24 | XMS_ITS | Encounter Summary ---
Author Organization [facility] Address [address] [place] [phone] Phone Care Team Providers Care Production Metal Sprayer Name Role Phone Unavailable Primary Care Provider Unavailabl e Encounter Details Date Type Department Care Team (Latest Contact Info) Description 04/20/2023 Transcribe Orders Virtual Department [address] [place] [address] Pineda Renteria, DO [address] [place] [address] Dyspnea on exertion; Primary hypertension Social History [...] It is not the complete legal health record.[facility]
[2025-10-28 10:49] LABS: Hematocrit 44.7 % (42.0-52.0); Hemoglobin 15.2 g/dl (14.0-18.0); Mean Corpuscular HGB Conc 34.0 g/dl (31.0-36.0); Mean Corpuscular Hemoglobin 30.2 pg (27.0-33.0); Mean Corpuscular Volume 88.7 fL (80.0-98.0); NRBC Abs Auto 0.000 X10*3/uL (0.0-0.012); NRBC Pct Auto 0.0 /100WBC (0.0-0.2); Platelet Count 232 X10*3/uL (160-400); Red Blood Count 5.04 X10*6/uL (4.60-5.80); White Blood Count 7.4 X10*3/uL (4.8-10.8)
[2025-10-28 11:08] LABS: Alanine Aminotransferase 24 U/L (0-40); Albumin Level 4.6 g/dL (3.5-5.0); Alkaline Phosphatase 85 U/L (39-117); Anion Gap 10 (12-20); Aspartate Amino Transferase 25 U/L (5-37); Blood Urea Nitrogen 15 mg/dL (9-16); Calcium 9.3 mg/dL (8.4-10.2); Carbon Dioxide 24 mmol/L (22-29); Chloride 111 mmol/L (96-108); Cholesterol 145 mg/dL (<200); Estimated Glomerular Filt Rate > 60; HDL Cholesterol 42 mg/dL (>40); Potassium 4.2 mmol/L (3.3-5.1); Sodium 141 mmol/L (135-145); Total Protein 6.7 g/dL (6.5-8.0); Triglycerides 101 mg/dL (<150)
[2025-10-28 11:13] LABS: Thyroid Stimulating Hormone 2.26 uIU/mL (0.32-4.0)
[2025-10-28 16:26] LABS: Appearance Urine Clear; Glucose Urine UA Negative (Negative); PH 6.5 (5.0-9.0); Specific Gravity - Urine 1.020 (1.005-1.025)
== END 2025-10-28 08:22 | disposition home or self-care (01) ==
LOC: HO.HMGCLDS 08:21
PROVIDERS: PCP Internal Medicine; Visit Provider Internal Medicine
DX: L03.90 Cellulitis, unspecified (principal); Z12.5 Encounter for screening for malignant neoplasm of prostate; Z13.29 Encounter for screening for other suspected endocrine disorder; Z13.6 Encounter for screening for cardiovascular disorders
CPT/HCPCS: 36415; 80048; 80061; 80076; 81003; 84153; 84443; 85027